=== PATIENT | female | born 1960 | race Caucasian/White ===

== ENCOUNTER 2018-03-21 10:21 | Emergency (ER) | payer MEDICARE, BC ==
[2018-03-21 10:28] VITALS: BP 156/96; PULSE 83; RESP 18; TEMP 97.8
[2018-03-21] MEDS ORDERED: LIDOCAINE 1%-EPI 1:100,000 20 ML VIAL SQ STA (10:59)
[2018-03-21] MEDS ORDERED: BUPIVACAINE (PF) 0.75% 10 ML VIAL SQ STA (11:01)
--- NOTE | 2018-03-21 11:02 | ED ---
General Adult HPI - General Chief complaint: Dental/Oral Stated complaint: Dental pain Source: patient Mode of arrival: ambulatory Limitations: no limitations - History of Present Illness Initial comments: Dictation was produced using Snoobe dictation software. please excuse any grammatical, word or spelling errors. Chief Complaint: 57yo female with past medical history of poor dentition presents with dental pain. History of Present Illness: 57-year-old female presents with dental pain. Patient states that last night she cracked her back tooth. Patient has history of poor dentition. She has not seen dentist in several years. She complains of left-sided maxillary tooth pain. Patient states the pain began immediately after she felt her tooth crack. The ROS documented in this emergency department record has been reviewed and confirmed by me. Those systems with pertinent positive or negative responses have been documented in the HPI. All other systems are other negative and/or noncontributory. - Related Data Home Medications Medication Instructions Recorded Confirmed Aspirin EC [Ecotrin] 325 mg PO DAILY PRN 03/21/18 03/21/18 Atorvastatin [Lipitor] 40 mg PO HS 03/21/18 03/21/18 Lisinopril [Zestril] 2.5 mg PO DAILY 03/21/18 03/21/18 Nebivolol HCl [Bystolic] 10 mg PO DAILY 03/21/18 03/21/18 metFORMIN HCL ER [Glucophage Xr] 500 mg PO TID 03/21/18 03/21/18 Previous Rx's Medication Instructions Recorded Amoxic-Pot Clav 875-125Mg 1 tab PO BID 3 Days #6 tab 03/21/18 [Augmentin 875-125] HYDROcodone/APAP 5-325MG [[place] 1 tab PO Q6HR PRN 3 Days #12 tab 03/21/18 5-325] Allergies Allergy/AdvReac Type Severity Reaction Status Date / Time No Known Allergies Allergy Verified 03/21/18 10:42 Review of Systems ROS Statement: Those systems with pertinent positive or pertinent negative responses have been documented in the HPI. ROS Other: All systems not noted in ROS Statement are negative. Past Medical History Past Medical History: Hyperlipidemia, Hypertension History of Any Multi-Drug Resistant Organisms: None Reported Past Surgical History: Tubal Ligation Additional Past Surgical History / Comment(s): carpal tunnel, rotator cuff Past Psychological History: No Psychological Hx Reported Smoking Status: Current every day smoker Past Alcohol Use History: None Reported Past Drug Use History: None Reported General Exam - General Exam Comments Initial Comments: PHYSICAL EXAM: General Impression: Alert and oriented x3, not in acute distress HEENT: Normocephalic atraumatic, extra-ocular movements intact, pupils equal and reactive to light bilaterally, mucous membranes moist, poor dentition. Defect and left maxillary molar, no palpable gingival fluctuance Cardiovascular: Heart regular rate and rhythm, S1&S2 audible, no murmurs, rubs or gallops Chest: Lungs clear to auscultation bilaterally, no rhonchi, no wheeze, no rales Abdomen: Bowel sounds present, abdomen soft, non-tender, non-distended, no organomegaly Musculoskeletal: Pulses present and equal in all extremities, no peripheral edema Motor: Power 5/5 bilaterally, no focal deficits noted Neurological: CN II-XII grossly intact, no focal motor or sensory deficits noted Skin: Intact with no visualized rashes Psych: Normal affect and mood Limitations: no limitations Course Vital Signs 03/21/18 10:25 Temperature 97.8 F Pulse Rate 83 Respiratory 18 Rate Blood Pressure 156/96 O2 Sat by Pulse 100 Oximetry Procedures - Nerve Block Consent Obtained: verbal consent Time Out Performed: Yes Local Anesthetic Used: LIDOCAINE 1% with EPI Amount of anesthesia used: 4 Side: left Nerve Blocks: other Intraoral Nerve Block: supraperiosteal Procedure Successful: Yes Complications: none Patient Tolerated Procedure: well Medical Decision Making - Medical Decision Making ED course: 57-year-old female presents with dental pain of the left maxillary molar tooth. Patient has poor dental hygiene on physical examination. No signs of infection at this time. Vital signs upon arrival are within acceptable limits. Dental nerve block was performed at left maxillary first molar tooth. Patient was injected with bupivacaine and lidocaine. medications. Patient reevaluated with improvement of symptoms. Patient be discharged with antibiotics, oral analgesics. She is told to see dentist as soon as possible for outpatient management of dental pain. Disposition Clinical Impression: Pain, dental Disposition: HOME SELF-CARE Instructions: Toothache (ED) Additional Instructions: follow up with dentist debo Prescriptions: Amoxic-Pot Clav 875-125Mg [Augmentin 875-125] 1 tab PO BID 3 Days #6 tab HYDROcodone/APAP 5-325MG [[place] 5-325] 1 tab PO Q6HR PRN 3 Days #12 tab PRN Reason: Severe Pain Is patient prescribed a controlled substance at d/c from ED?: Yes If prescribed controlled substance>3 days was MAPS reviewed?: Prescribed <3 Days Referrals: Luigi Gonzales DO [Primary Care Provider] - 1-2 days Time of Disposition: 11:40
[2018-03-21] MEDS ORDERED: HYDROcodone/APAP 5-325MG 1 EACH TAB PO STA (11:34)
== END 2018-03-21 11:46 | disposition home or self-care (01) ==
LOC: EC 10:21
DX: K08.89 Other specified disorders of teeth and supporting structures (principal); E78.5 Hyperlipidemia, unspecified; I10 Essential (primary) hypertension; F17.200 Nicotine dependence, unspecified, uncomplicated; Z79.82 Long term (current) use of aspirin; Z79.84 Long term (current) use of oral hypoglycemic drugs; Z79.899 Other long term (current) drug therapy
CPT/HCPCS: 64400; 99282

== ENCOUNTER → 2019-08-30 | Outpatient (CLI) | payer MEDICARE, BC ==
--- NOTE | 2019-08-30 16:01 | XR ---
EXAMINATION TYPE: XR abdomen 2V DATE OF EXAM: 08/30/2019 COMPARISON: NONE HISTORY: Pain TECHNIQUE: Two view abdominal series FINDINGS: The osseous structures are intact. The bowel gas pattern is nonspecific. Lung bases are clear. Calc ifications in the pelvis are likely vascular. Hypertrophic and degenerative change of the spine. IMPRESSION: 1. Nonspecific abdomen.
== END | disposition home or self-care (01) ==
LOC: RADXRMAIN 15:34
PROVIDERS: ATTEND Family Medicine
DX: R11.10 Vomiting, unspecified (principal)
CPT/HCPCS: 74019

== ENCOUNTER 2020-08-08 16:22 | Emergency (ER) | payer MEDICARE, BC ==
[2020-08-08 16:55] VITALS: BP 112/73; PULSE 83; TEMP 97.9
[2020-08-08] MEDS ORDERED: LIDOCAINE 1% INJ 10MG/ML (20 ML MDV) SQ ONE (17:39)
--- NOTE | 2020-08-08 17:41 | ED ---
Wound/Laceration HPI - General Chief Complaint: Wound/Laceration Stated Complaint: Finger laceration, dog bite Time Seen by Provider: 08/08/20 17:04 Source: patient, RN notes reviewed Mode of arrival: ambulatory Limitations: no limitations - History of Present Illness Initial Comments: Patient is a 60-year-old female that presents to emergency department with right index finger laceration on the medial side. She notes that her puppy snagged with a tooth and cut her finger. She notes that the puppy is up-to-date on its vaccinations. She denied any pain or discomfort at this time. She still has full range of motion feeling sensation in that finger. She denied any weakness numbness tingling decreased range of motion strength chest pendulous breath headache nausea vomiting diarrhea constipation fever fatigue chills. - Related Data Home Medications Medication Instructions Recorded Confirmed Aspirin EC [Ecotrin] 325 mg PO DAILY PRN 03/21/18 03/21/18 Atorvastatin [Lipitor] 40 mg PO HS 03/21/18 03/21/18 Nebivolol HCl [Bystolic] 10 mg PO DAILY 03/21/18 03/21/18 lisinopriL [Zestril] 2.5 mg PO DAILY 03/21/18 03/21/18 metFORMIN HCL ER [Glucophage Xr] 500 mg PO TID 03/21/18 03/21/18 Previous Rx's Medication Instructions Recorded Amoxic-Pot Clav 875-125Mg 1 tab PO BID 3 Days #6 tab 03/21/18 [Augmentin 875-125] HYDROcodone/APAP 5-325MG [[place] 1 tab PO Q6HR PRN 3 Days #12 tab 03/21/18 5-325] Amoxicillin/Potassium Clav 1 tab PO Q12HR #20 tab 08/08/20 [Augmentin 875-125 Tablet] Allergies Allergy/AdvReac Type Severity Reaction Status Date / Time No Known Allergies Allergy Verified 08/08/20 16:52 Review of Systems ROS Statement: Those systems with pertinent positive or pertinent negative responses have been documented in the HPI. ROS Other: All systems not noted in ROS Statement are negative. Past Medical History Past Medical History: Hyperlipidemia, Hypertension History of Any Multi-Drug Resistant Organisms: None Reported Past Surgical History: Tubal Ligation Additional Past Surgical History / Comment(s): carpal tunnel, rotator cuff Past Psychological History: No Psychological Hx Reported Smoking Status: Current every day smoker Past Alcohol Use History: None Reported Past Drug Use History: None Reported General Exam Limitations: no limitations General appearance: alert, in no apparent distress Head exam: Present: atraumatic, normocephalic, normal inspection Eye exam: Present: normal appearance, PERRL, EOMI. Absent: scleral icterus, conjunctival injection, periorbital swelling Neck exam: Present: normal inspection Respiratory exam: Present: normal lung sounds bilaterally. Absent: respiratory distress, wheezes, rales, rhonchi, stridor Cardiovascular Exam: Present: regular rate, normal rhythm, normal heart sounds. Absent: systolic murmur, diastolic murmur, rubs, gallop, clicks GI/Abdominal exam: Present: soft, normal bowel sounds. Absent: distended, tenderness, guarding, rebound, rigid Extremities exam: Present: normal inspection, full ROM, normal capillary refill. Absent: tenderness, pedal edema, joint swelling, calf tenderness Right Hand Wrist exam: Present: laceration (Medial aspect of the index finger running distal to proximal approximately 5-6 sonometer's) Neurological exam: Present: alert, oriented X3, CN II-XII intact Psychiatric exam: Present: normal affect, normal mood Skin exam: Present: warm, dry, intact, normal color. Absent: rash Course Vital Signs 08/08/20 16:52 Temperature 97.9 F Pulse Rate 83 Respiratory 16 Rate Blood Pressure 112/73 O2 Sat by Pulse 98 Oximetry Procedures - Laceration Laceration #1 Consent Obtained: verbal consent Indication: laceration Site: hand (Right index finger) Size (cm): 5 Description: linear Depth: simple, single layer Anesthetic Used: lidocaine 1% Anesthesia Technique: local infiltration Amount (mls): 2 Pre-repair: irrigated extensively Type of Sutures: nylon Size of Sutures: 5-0 Number of Sutures: 3 Patient Tolerated Procedure: well, no complications Medical Decision Making - Medical Decision Making 60-year-old female with finger laceration from puppy tooth snagged. Lidocaine ordered. Patient tolerated suturing well. Case discussed with Dr. Wallace, patient can discharge home with follow-up primary care. Disposition Clinical Impression: Laceration, Dog bite Disposition: HOME SELF-CARE Condition: Stable Instructions (If sedation given, give patient instructions): Laceration (ED), Care For Your Stitches (ED) Additional Instructions: Please return to the Emergency Department if symptoms worsen or any other concerns. Take Avelox as prescribed until complete. Please return to emergency department to get stitches removed in 5-7 days. Can take Tylenol Motrin as needed for pain control. Follow-up with primary care in 3-5 days Prescriptions: Amoxicillin/Potassium Clav [Augmentin 875-125 Tablet] 1 tab PO Q12HR #20 tab Is patient prescribed a controlled substance at d/c from ED?: No Referrals: Luigi Gonzales DO [Primary Care Provider] - 1-2 days Time of Disposition: 18:21
[2020-08-08 18:33] VITALS: RESP 18
== END 2020-08-08 18:34 | disposition home or self-care (01) ==
LOC: EC 16:22
DX: S61.250A Open bite of right index finger without damage to nail, initial encounter (principal); W54.0XXA Bitten by dog, initial encounter; I10 Essential (primary) hypertension; F17.200 Nicotine dependence, unspecified, uncomplicated; E78.5 Hyperlipidemia, unspecified; Z98.51 Tubal ligation status
CPT/HCPCS: 99282; 12002; 96372; J2001

== ENCOUNTER 2021-12-18 18:57 | Inpatient (IN) | payer MEDICARE, BC ==
[2021-12-18] MEDS ORDERED: METOCLOPRAMIDE 5 MG/ML 2 ML VIAL IVP STA (22:22)
[2021-12-18] MEDS ORDERED: SODIUM CHLORIDE 0.9% 2,000 ML IV STA (22:22)
[2021-12-18] MEDS ORDERED: MORPHINE SULFATE 4 MG/ML SYRINGE IVP STA (22:49)
[2021-12-18 22:55] LABS: Appearance,Urine Cloudy (Clear); Bilirubin,Urine Negative (Negative); Blood,Urine Large (Negative); Color,Urine Yellow; Glucose,Urine (UA) Negative (Negative); Hyaline Casts,Urine 19 /lpf (0-2); Ketones,Urine 2+ (Negative); Leukocyte Esterase,Urine Small (Negative); Mucus,Urine Occasional /hpf; Nitrite,Urine Negative (Negative); Protein,Urine 1+ (Negative); RBC,Urine >182 /hpf (0-5); Specific Gravity,Urine 1.026 (1.001-1.035); Squamous Epithelial Cell,Urine 7 /hpf (0-4); WBC,Urine 20 /hpf (0-5)
[2021-12-18 23:20] LABS: Basophils # (A) 0.1 k/uL (0-0.2); Basophils % (A) 0 %; Eosinophils % (A) 0 %; HCT 43.3 % (34.0-46.0); HGB 14.2 gm/dL (11.4-16.0); Lymphocytes # (A) 1.9 k/uL (1.0-4.8); Lymphocytes % (A) 10 %; MCH 28.8 pg (25.0-35.0); MCHC 32.8 g/dL (31.0-37.0); MCV 87.8 fL (80.0-100.0); Mean Platelet Volume 10.2; Monocytes # (A) 1.1 k/uL (0-1.0); Monocytes % (A) 6 %; Neutrophils % (A) 83 %; Platelet Count 181 k/uL (150-450); RBC 4.93 m/uL (3.80-5.40); RDW 14.1 % (11.5-15.5); WBC 19.3 k/uL (3.8-10.6)
--- NOTE | 2021-12-18 23:22 | CT ---
EXAMINATION TYPE: CT abdomen pelvis w con DATE OF EXAM: 12/18/2021 COMPARISON: 10/03/2012 HISTORY: abd pain CT DLP: 1732 mGycm Automated exposure control for dose reduction was used. CONTRAST: Performed with IV Contrast, patient injected with 100 mL of Isovue 300. The lung bases are clear of infiltrate. No pleural effusion. Heart size is normal. No pericardial eff usion. Liver spleen stomach pancreas gallbladder appear intact. The bile ducts are not dilated. There is no adrenal mass. Kidneys of normal size. There is left-sided hydronephrosis and hydroureter. There is an obstructing 3 mm calculus at the left ureterovesical junction. Right kidney shows no sig n of obstruction. There is some fat stranding and apparent extraluminal fluid collection and fluid level posterior to t he mid sigmoid colon. This measures 4 cm in diameter. No inguinal hernia. No free fluid in the pelvis . Appendix is medial and appears normal. There is no ascites or free air. No sign of a bowel obstructio n. The lumbar vertebrae are normal alignment. No compression fracture. Bony pelvis is intact. Hip sierra nts are intact. IMPRESSION: Obstructing small calculus at the left ureterovesical junction with left-sided hydronephrosis and hyd roureter. No other calculus seen. There is some mild diverticulitis with posterior complex fluid collection and consistent with peridiv erticular abscess. There is relatively small amount of inflammatory reaction around the fluid and con sistent with a chronic abscess.
[2021-12-18 23:35] LABS: Albumin 4.4 g/dL (3.5-5.0); Calcium 9.6 mg/dL (8.4-10.2); Potassium 4.2 mmol/L (3.5-5.1); Total Bilirubin 0.7 mg/dL (0.2-1.3); Total Protein 7.6 g/dL (6.3-8.2)
[2021-12-19] MEDS ORDERED: ONDANSETRON 4 MG/2 ML VIAL IVP PRN (00:51)
[2021-12-19] MEDS ORDERED: NALOXONE 0.4 MG/ML 1 ML VIAL IV PRN (00:51)
--- NOTE | 2021-12-19 00:51 | ED ---
General Adult HPI - General Chief complaint: Nausea/Vomiting/Diarrhea Stated complaint: Abd pain Time Seen by Provider: 12/18/21 22:08 Source: patient Mode of arrival: ambulatory Limitations: no limitations - History of Present Illness Initial comments: Patient is a 61-year-old female presenting with chief complaint of nausea and vomiting for the last 3 weeks. Patient also admits to abdominal pain across the lower portion of the abdomen. Patient has history of kidney stones. Patient states she has not been able to tolerate oral intake at home. Patient states she is having infrequent bowel movements, no known diarrhea or hematochezia. No dysuria or hematuria. No radiation of pain to the back. No fever, chills, chest pain, shortness of breath, weakness, palpitations. - Related Data Home Medications Medication Instructions Recorded Confirmed Aspirin EC [Ecotrin] 325 mg PO DAILY PRN 03/21/18 03/21/18 Atorvastatin [Lipitor] 40 mg PO HS 03/21/18 03/21/18 Nebivolol HCl [Bystolic] 10 mg PO DAILY 03/21/18 03/21/18 lisinopriL [Zestril] 2.5 mg PO DAILY 03/21/18 03/21/18 metFORMIN HCL ER [Glucophage Xr] 500 mg PO TID 03/21/18 03/21/18 Previous Rx's Medication Instructions Recorded Amoxic-Pot Clav 875-125Mg 1 tab PO BID 3 Days #6 tab 03/21/18 [Augmentin 875-125] HYDROcodone/APAP 5-325MG [[place] 1 tab PO Q6HR PRN 3 Days #12 tab 03/21/18 5-325] Amoxicillin/Potassium Clav 1 tab PO Q12HR #20 tab 08/08/20 [Augmentin 875-125 Tablet] Allergies Allergy/AdvReac Type Severity Reaction Status Date / Time No Known Allergies Allergy Verified 12/18/21 19:29 Review of Systems ROS Statement: Those systems with pertinent positive or pertinent negative responses have been documented in the HPI. ROS Other: All systems not noted in ROS Statement are negative. Past Medical History Past Medical History: Hyperlipidemia, Hypertension History of Any Multi-Drug Resistant Organisms: None Reported Past Surgical History: Tubal Ligation Additional Past Surgical History / Comment(s): carpal tunnel, rotator cuff Past Psychological History: No Psychological Hx Reported Smoking Status: Current every day smoker Past Alcohol Use History: None Reported Past Drug Use History: None Reported General Exam Limitations: no limitations General appearance: alert, in no apparent distress Head exam: Present: atraumatic, normocephalic, normal inspection Eye exam: Present: normal appearance, PERRL, EOMI. Absent: scleral icterus, conjunctival injection, periorbital swelling Neck exam: Present: normal inspection Respiratory exam: Present: normal lung sounds bilaterally. Absent: respiratory distress, wheezes, rales, rhonchi, stridor Cardiovascular Exam: Present: regular rate, normal rhythm, normal heart sounds. Absent: systolic murmur, diastolic murmur, rubs, gallop, clicks GI/Abdominal exam: Present: soft, tenderness (diffuse). Absent: distended, guarding, rebound, rigid Neurological exam: Present: alert, oriented X3, CN II-XII intact Psychiatric exam: Present: normal affect, normal mood Skin exam: Present: warm, dry, intact, normal color. Absent: rash Course Vital Signs 12/18/21 12/19/21 19:27 02:40 Temperature 98.5 F Pulse Rate 99 Pulse Rate [ 91 Pulse Oximetery ] Respiratory 18 16 Rate Blood Pressure 159/93 Blood Pressure 91/65 [Right Arm] O2 Sat by Pulse 99 93 L Oximetry Medical Decision Making - Medical Decision Making Patient is a 61-year-old female presenting with chief complaint of nausea, vomi ting, abdominal pain for the last 3 weeks. On examination there is diffuse abdominal tenderness. CBC shows WBC 19.3. Sodium 133, patient is receiving IV fluids glucose 125. Urine is positive for large blood and greater than [address] shows obstructing small calculus at the left ureterovesicular junction with left-sided hydronephrosis and hydroureter as well as some mild diverticulitis with posterior complex fluid collection collection consistent with peridiverticular abscess. Patient is started on Zosyn, has been given pain medication and nausea medication. I reassessment she is resting comfortably. I informed her of these findings and the need for admission. She was agreeable. E physician accepted admission. Surgical and urology consults placed. I discussed this case with my attending Dr. Frias. - Lab Data Result diagrams: 12/18/21 22:39 12/18/21 22:39 Lab Results 12/18/21 12/18/21 12/18/21 Range/Units 22:27 22:39 22:39 WBC 19.3 H (3.8-10.6) k/uL RBC 4.93 (3.80-5.40) m/uL Hgb 14.2 (11.4-16.0) gm/dL Hct 43.3 (34.0-46.0) % MCV 87.8 (80.0-100.0) fL MCH 28.8 (25.0-35.0) pg MCHC 32.8 (31.0-37.0) g/dL RDW 14.1 (11.5-15.5) % Plt Count 181 (150-450) k/uL MPV 10.2 Neutrophils % 83 % Lymphocytes % 10 % Monocytes % 6 % Eosinophils % 0 % Basophils % 0 % Neutrophils # 16.0 H (1.3-7.7) k/uL Lymphocytes # 1.9 (1.0-4.8) k/uL Monocytes # 1.1 H (0-1.0) k/uL Eosinophils # 0.0 (0-0.7) k/uL Basophils # 0.1 (0-0.2) k/uL Sodium 133 L (137-145) mmol/L Potassium 4.2 (3.5-5.1) mmol/L Chloride 98 (98-107) mmol/L Carbon Dioxide 18 L (22-30) mmol/L Anion Gap 17 mmol/L BUN 16 (7-17) mg/dL Creatinine 0.85 (0.52-1.04) mg/dL Est GFR (CKD-EPI)AfAm 87 (>60 ml/min/1.73 sqM) Est GFR (CKD-EPI)NonAf 76 (>60 ml/min/1.73 sqM) Glucose 125 H (74-99) mg/dL Calcium 9.6 (8.4-10.2) mg/dL Total Bilirubin 0.7 (0.2-1.3) mg/dL AST 18 (14-36) U/L ALT 12 (4-34) U/L Alkaline Phosphatase 87 (38-126) U/L Total Protein 7.6 (6.3-8.2) g/dL Albumin 4.4 (3.5-5.0) g/dL Amylase 41 (30-110) U/L Lipase 108 (23-300) U/L Urine Color Yellow Urine Appearance Cloudy H (Clear) Urine pH 6.0 (5.0-8.0) Ur Specific [place] 1.026 (1.001-1.035) Urine Protein 1+ H (Negative) Urine Glucose (UA) Negative (Negative) Urine Ketones 2+ H (Negative) Urine Blood Large H (Negative) Urine Nitrite Negative (Negative) Urine Bilirubin Negative (Negative) Urine Urobilinogen 3.0 (<2.0) mg/dL Ur Leukocyte Esterase Small H (Negative) Urine RBC >182 H (0-5) /hpf Urine WBC 20 H (0-5) /hpf Ur Squamous Epith Cells 7 H (0-4) /hpf Hyaline Casts 19 H (0-2) /lpf Urine Mucus Occasional H (None) /hpf Disposition Clinical Impression: Diverticulitis of intestine with abscess, Kidney stone Disposition: ADMITTED IP TO THIS [facility] Condition: Serious Time of Disposition: 00:51
[2021-12-19] MEDS ORDERED: PIPERACILLIN-TAZOBACTAM 3.375 GM in SODIUM CHLORIDE 0.9% 100 ML IVPB ONE (01:00)
[2021-12-19] MEDS: MORPHINE SULFATE 4 MG/ML SYRINGE IV PRN ×3 (02:46→17:09)
[2021-12-19] MEDS: SODIUM CHLORIDE 0.9% 1,000 ML IV SCH ×4 (02:48→20:25)
--- NOTE | 2021-12-19 10:23 | P.GSCN ---
History of Present Illness Consult date: 12/19/21 Reason for Consult: Left ureteral calculus Requesting physician: Edin Sanchez History of present illness: The patient is a 61-year-old white female who passed a kidney stone approximately 20 years ago. For the past 3 weeks, she has experienced left lower quadrant abdominal pain, associated with nausea and vomiting. The nausea and vomiting have increased for the past 5 days. She denies dysuria but does report "pressure". CT scan shows mild left hydroureteronephrosis due to a 3 mm left distal ureteral calculus. No other calculi are seen. The CT scan also shows mild diverticulitis with a possible peridiverticular abscess. Review of Systems - Constitutional Denies chills, Denies fever - Gastrointestinal Reports nausea, Reports vomiting - Genitourinary Genitourinary: Reports kidney stones Past Medical History Past Medical History: Hyperlipidemia, Hypertension History of Any Multi-Drug Resistant Organisms: None Reported Past Surgical History: Tubal Ligation Additional Past Surgical History / Comment(s): carpal tunnel, rotator cuff Past Anesthesia/Blood Transfusion Reactions: No Reported Reaction Past Psychological History: No Psychological Hx Reported Smoking Status: Current every day smoker Past Alcohol Use History: None Reported Past Drug Use History: None Reported Medications and Allergies Home Medications Medication Instructions Recorded Confirmed Type Amoxic-Pot Clav 875-125Mg 1 tab PO BID 3 Days #6 tab 03/21/18 Rx [Augmentin 875-125] Aspirin EC [Ecotrin] 325 mg PO DAILY PRN 03/21/18 03/21/18 History Atorvastatin [Lipitor] 40 mg PO HS 03/21/18 03/21/18 History HYDROcodone/APAP 5-325MG [[place] 1 tab PO Q6HR PRN 3 Days #12 tab 03/21/18 Rx 5-325] Nebivolol HCl [Bystolic] 10 mg PO DAILY 03/21/18 03/21/18 History lisinopriL [Zestril] 2.5 mg PO DAILY 03/21/18 03/21/18 History metFORMIN HCL ER [Glucophage Xr] 500 mg PO TID 03/21/18 03/21/18 History Amoxicillin/Potassium Clav 1 tab PO Q12HR #20 tab 08/08/20 Rx [Augmentin 875-125 Tablet] Allergies Allergy/AdvReac Type Severity Reaction Status Date / Time No Known Allergies Allergy Verified 12/18/21 19:29 Surgical - Exam Vital Signs Temp Pulse Resp BP Pulse Ox 98.5 F 99 18 159/93 99 12/18/21 19:27 12/18/21 19:27 12/18/21 19:27 12/18/21 19:27 12/18/21 19:27 - General well developed, well nourished, moderate distress - Neck no masses, trachea midline - Respiratory normal respiratory effort - Abdomen Soft, non-distended, no palpable mass. Moderate left lower quadrant tenderness to palpation, no guarding or rebound. - Psychiatric oriented to time, oriented to person, oriented to place, speech is normal, memory intact Results - Labs 12/18/21 22:39 12/18/21 22:39 Abnormal Lab Results - Last 24 Hours (Table) 12/18/21 12/18/21 12/18/21 Range/Units 22:27 22:39 22:39 WBC 19.3 H (3.8-10.6) k/uL Neutrophils # 16.0 H (1.3-7.7) k/uL Monocytes # 1.1 H (0-1.0) k/uL Sodium 133 L (137-145) mmol/L Carbon Dioxide 18 L (22-30) mmol/L Glucose 125 H (74-99) mg/dL Urine Appearance Cloudy H (Clear) Urine Protein 1+ H (Negative) Urine Ketones 2+ H (Negative) Urine Blood Large H (Negative) Ur Leukocyte Esterase Small H (Negative) Urine RBC >182 H (0-5) /hpf Urine WBC 20 H (0-5) /hpf Ur Squamous Epith Cells 7 H (0-4) /hpf Hyaline Casts 19 H (0-2) /lpf Urine Mucus Occasional H (None) /hpf Diabetes panel 12/18/21 Range/Units 22:39 Sodium 133 L (137-145) mmol/L Potassium 4.2 (3.5-5.1) mmol/L Chloride 98 (98-107) mmol/L Carbon Dioxide 18 L (22-30) mmol/L BUN 16 (7-17) mg/dL Creatinine 0.85 (0.52-1.04) mg/dL Glucose 125 H (74-99) mg/dL Calcium 9.6 (8.4-10.2) mg/dL AST 18 (14-36) U/L ALT 12 (4-34) U/L Alkaline Phosphatase 87 (38-126) U/L Total Protein 7.6 (6.3-8.2) g/dL Albumin 4.4 (3.5-5.0) g/dL Calcium panel 12/18/21 Range/Units 22:39 Calcium 9.6 (8.4-10.2) mg/dL Albumin 4.4 (3.5-5.0) g/dL Pituitary panel 12/18/21 Range/Units 22:39 Sodium 133 L (137-145) mmol/L Potassium 4.2 (3.5-5.1) mmol/L Chloride 98 (98-107) mmol/L Carbon Dioxide 18 L (22-30) mmol/L BUN 16 (7-17) mg/dL Creatinine 0.85 (0.52-1.04) mg/dL Glucose 125 H (74-99) mg/dL Calcium 9.6 (8.4-10.2) mg/dL Adrenal panel 12/18/21 Range/Units 22:39 Sodium 133 L (137-145) mmol/L Potassium 4.2 (3.5-5.1) mmol/L Chloride 98 (98-107) mmol/L Carbon Dioxide 18 L (22-30) mmol/L BUN 16 (7-17) mg/dL Creatinine 0.85 (0.52-1.04) mg/dL Glucose 125 H (74-99) mg/dL Calcium 9.6 (8.4-10.2) mg/dL Total Bilirubin 0.7 (0.2-1.3) mg/dL AST 18 (14-36) U/L ALT 12 (4-34) U/L Alkaline Phosphatase 87 (38-126) U/L Total Protein 7.6 (6.3-8.2) g/dL Albumin 4.4 (3.5-5.0) g/dL - Imaging CT scan - abdomen: report reviewed, image reviewed Assessment and Plan (1) Calculus of ureter Current Visit: Yes Status: Acute Code(s): N20.1 - CALCULUS OF URETER SNOMED Code(s): 38381308 (2) Hydronephrosis with obstructing calculus Current Visit: Yes Status: Acute Code(s): N13.2 - HYDRONEPHROSIS WITH RENAL AND URETERAL CALCULOUS OBSTRUCTION SNOMED Code(s): 71278865 Plan: I have offered Mrs. Bustos the options of medical expulsion therapy versus ureteroscopic removal of the calculus. The calculus has a high likelihood of passing, but at this time she appears to have symptoms pertaining to both the ureteral calculus and diverticulitis. She has elected to undergo ureteroscopic removal of the calculus, which will be performed tomorrow. Specifically, I intend to perform cystoscopy, left ureteroscopy with Holmium laser lithotripsy and/or stone basketing, possible ureteral stent placement. The procedure has been reviewed in detail with her. She has been made aware of potential risks, which include anesthesia, bleeding, infection, inability to remove the calculus, and ureteral injury. She will be nothing by mouth after midnight, but from my standpoint she may eat today. Time with Patient: Greater than 30
[2021-12-19] MEDS ORDERED: ALPRAZolam 0.25 MG TAB PO PRN (11:51)
[2021-12-19] MEDS: HEPARIN SODIUM,PORCINE/PF 5,000 UNIT/0.5 ML SYRINGE SQ SCH ×2 (12:32→21:26)
[2021-12-19] MEDS: NEBIVOLOL 5 MG TAB PO SCH (12:34)
[2021-12-19] MEDS: PANTOPRAZOLE 40 MG/10 ML VIAL IVP SCH (12:35)
[2021-12-19] MEDS: lisinopriL 5 MG TAB PO SCH (12:35)
[2021-12-19] MEDS: NICOTINE 14MG/24HR PATCH TRANSDERM SCH ×2 (12:40)
[2021-12-19] MEDS: PIPERACILLIN-TAZOBACTAM 3.375 GM in SODIUM CHLORIDE 0.9% 100 ML IVPB SCH ×2 (12:48→21:27)
--- NOTE | 2021-12-19 13:17 | HP ---
HISTORY AND PHYSICAL CHIEF COMPLAINT: Abdominal pain and nausea and vomiting. HISTORY OF PRESENT ILLNESS: A 61-year-old woman with a past medical history of hypertension, hyperlipidemia, being followed by Dr. Lance. The patient has abdominal symptoms for the last 3 weeks. The patient had some discomfort on the left side. The patient came to [facility] and found to have left hydronephrosis, left ureteric stone as well as possibly diverticulitis and peridiverticular abscess, also patient . There is no history of fever, rigors, or chills at this time. PAST MEDICAL HISTORY: History of hypertension, hyperlipidemia, other history reviewed. MEDICATIONS: Metformin, doses and rest of medication also reviewed. ALLERGIES: None. FAMILY HISTORY: No history of heart diseases or strokes. SOCIAL HISTORY: History of smoking. REVIEW OF SYSTEMS: A 14-point review is negative except as mentioned earlier. PHYSICAL EXAMINATION: VITAL SIGNS: Pulse is 84, blood pressure 130/68, respirations 18. HEENT: Conjunctivae normal. NECK: No jugular venous distention. No carotid bruit. CARDIOVASCULAR: S1, S2 muffled. RESPIRATIONS: Bilateral scattered rhonchi and crackles. ABDOMEN: Soft, mild diffuse discomfort on palpation. No guarding, no rigidity. No mass palpable. Mild diffuse distention noted. No edema, no swelling. No ascites. Bowel sounds diminished. LEGS: No edema, no swelling, NERVOUS SYSTEM: No focal deficits. SKIN: No ulcer, rash, bleeding. JOINTS: No active deforming arthropathy. LABS: WBC 19, rest of the labs are noted. CT scan reviewed personally noted. ASSESSMENT: 1. Acute diverticulitis with peridiverticular abscess, possibly. 2. Left ureterovesical junction calculus with left-sided hydronephrosis and hydroureter. 3. Hypertension, hyperlipidemia, multiple medical issues. RECOMMENDATIONS: This 61-year-old woman with past _ problems, we will recommend to continue current medications, symptomatic treatment. We will initiate broad-spectrum IV antibiotics, urology, and surgical evaluations. Resume home medications, DVT prophylaxis. The prognosis guarded because of multiple complex medical conditions. Further recommendations to follow. MMODL / IJN: [id number] / MTDD
--- NOTE | 2021-12-19 15:20 | P.GSCN ---
History of Present Illness Consult date: 12/19/21 Reason for Consult: Suspected sigmoid diverticulitis with pericolonic abscess, acute abdominal pain, nausea and left obstructing ureterovesical kidney stone. History of present illness: Patient is a 61-year-old lady who presents to [facility] emergency department on 12/18/2021 with chief complaint of 3 days of progressive left lower quadrant abdominal pain with nausea. She tells me that her pain reached an apex and then seemed to improve a bit but remains persistent and 6 out of 10 in intensity. She denies associated fever or chills. The symptoms were accompanied with profound feelings of nausea and episodic diarrhea. She does not describe evidence of GI bleeding. This is the first time she has had these sorts of problems aside from an issue with a kidney stone some 20 years ago. She has not undergone abdominal surgeries, has never undergone colonoscopy. As no known personal history of inflammatory bowel disease. She's not maintained on any manner of oral anticoagulants or antiplatelet medications. She does have a history of type 2 diabetes and is maintained on metformin. Laboratory studies reveal of risk leukocytosis at 19.3 thousand, hemoglobin is normal range of 14.2, no evidence of microcytosis, hyperchromasia, or elevation of RDW on differential. Platelet count is normal range at 181. Metabolic panel shows a slightly low serum sodium of 133, potassium 4.2, CO2 is a bit low at 18, creatinine 0.85 and glucose 125. Venous lactate was normal range at 0.7. Amylase and lipase were both within normal range as were liver function studies. Urinalysis shows signs of hematuria without discrete evidence of urinary tract infection.A computed tomography scan of the abdomen and pelvis was obtained, im ages and official report were reviewed. There is an obstructive left ureterovesical stone with the moderate left sided hydronephrosis. There is evidence of degree of sigmoid diverticulitis and a 4 cm or so pericolonic fluid collection suspicious of abscess. There is no free air or free fluid, no signs of bowel obstruction. Patient's been seen by urology with plans for cystoscopy. Review of Systems All systems: negative - Constitutional Reports as per HPI - EENT Ears, nose, mouth and throat: Reports as per HPI - Cardiovascular Reports as per HPI - Respiratory Reports as per HPI - Gastrointestinal Reports as per HPI, Reports abdominal pain, Reports diarrhea - Genitourinary Genitourinary: Reports as per HPI Menstruation: Reports as per HPI - Musculoskeletal Reports as per HPI - Integumentary Reports as per HPI - Neurological Reports as per HPI - Psychiatric Reports as per HPI - Endocrine Reports as per HPI - Hematologic/Lymphatic Reports as per HPI - Allergic/Immunologic Reports as per HPI Past Medical History Past Medical History: Diabetes Mellitus, Hyperlipidemia, Hypertension History of Any Multi-Drug Resistant Organisms: None Reported Past Surgical History: Tubal Ligation Additional Past Surgical History / Comment(s): carpal tunnel, rotator cuff Past Anesthesia/Blood Transfusion Reactions: No Reported Reaction Past Psychological History: No Psychological Hx Reported Smoking Status: Current every day smoker Past Alcohol Use History: None Reported Past Drug Use History: None Reported Medications and Allergies Home Medications Medication Instructions Recorded Confirmed Type Atorvastatin [Lipitor] 40 mg PO HS 03/21/18 12/19/21 History Nebivolol HCl [Bystolic] 10 mg PO DAILY 03/21/18 12/19/21 History Glimepiride [Amaryl] 2 mg PO BID 12/19/21 12/19/21 History lisinopriL [Zestril] 5 mg PO DAILY 12/19/21 12/19/21 History metFORMIN HCL [Glucophage] 1,000 mg PO BID 12/19/21 12/19/21 History Allergies Allergy/AdvReac Type Severity Reaction Status Date / Time No Known Allergies Allergy Verified 12/19/21 11:27 Surgical - Exam Osteopathic Statement: *. No significant issues noted on an osteopathic structural exam other than those noted in the History and Physical/Consult. Vital Signs Temp Pulse Resp BP Pulse Ox 98.5 F 99 18 159/93 99 12/18/21 19:27 12/18/21 19:27 12/18/21 19:27 12/18/21 19:27 12/18/21 19:27 - General well developed, well nourished, no distress - Eyes PERRL, normal ocular movement - ENT normal pinna, normal nares, normal mucosa, no hearing loss - Neck trachea midline - Respiratory normal expansion, clear to auscultation - Cardiovascular Rhythm: regular - Abdomen There is mild focal left lower quadrant tenderness, no guarding rebound or distention. No clinical signs of peritonitis. No clinical signs of jaundice. Abdomen: soft - Neurologic normal coordination, normal sensation - Psychiatric oriented to time, oriented to person, oriented to place, speech is normal, memory intact Results - Labs 12/18/21 22:39 12/18/21 22:39 Abnormal Lab Results - Last 24 Hours (Table) 12/18/21 12/18/21 12/18/21 Range/Units 22:27 22:39 22:39 WBC 19.3 H (3.8-10.6) k/uL Neutrophils # 16.0 H (1.3-7.7) k/uL Monocytes # 1.1 H (0-1.0) k/uL Sodium 133 L (137-145) mmol/L Carbon Dioxide 18 L (22-30) mmol/L Glucose 125 H (74-99) mg/dL Urine Appearance Cloudy H (Clear) Urine Protein 1+ H (Negative) Urine Ketones 2+ H (Negative) Urine Blood Large H (Negative) Ur Leukocyte Esterase Small H (Negative) Urine RBC >182 H (0-5) /hpf Urine WBC 20 H (0-5) /hpf Ur Squamous Epith Cells 7 H (0-4) /hpf Hyaline Casts 19 H (0-2) /lpf Urine Mucus Occasional H (None) /hpf Microbiology - Last 24 Hours (Table) 12/18/21 22:27 Urine Culture - Preliminary Urine,Voided Diabetes panel 12/18/21 Range/Units 22:39 Sodium 133 L (137-145) mmol/L Potassium 4.2 (3.5-5.1) mmol/L Chloride 98 (98-107) mmol/L Carbon Dioxide 18 L (22-30) mmol/L BUN 16 (7-17) mg/dL Creatinine 0.85 (0.52-1.04) mg/dL Glucose 125 H (74-99) mg/dL Calcium 9.6 (8.4-10.2) mg/dL AST 18 (14-36) U/L ALT 12 (4-34) U/L Alkaline Phosphatase 87 (38-126) U/L Total Protein 7.6 (6.3-8.2) g/dL Albumin 4.4 (3.5-5.0) g/dL Calcium panel 12/18/21 Range/Units 22:39 Calcium 9.6 (8.4-10.2) mg/dL Albumin 4.4 (3.5-5.0) g/dL Pituitary panel 12/18/21 Range/Units 22:39 Sodium 133 L (137-145) mmol/L Potassium 4.2 (3.5-5.1) mmol/L Chloride 98 (98-107) mmol/L Carbon Dioxide 18 L (22-30) mmol/L BUN 16 (7-17) mg/dL Creatinine 0.85 (0.52-1.04) mg/dL Glucose 125 H (74-99) mg/dL Calcium 9.6 (8.4-10.2) mg/dL Adrenal panel 12/18/21 Range/Units 22:39 Sodium 133 L (137-145) mmol/L Potassium 4.2 (3.5-5.1) mmol/L Chloride 98 (98-107) mmol/L Carbon Dioxide 18 L (22-30) mmol/L BUN 16 (7-17) mg/dL Creatinine 0.85 (0.52-1.04) mg/dL Glucose 125 H (74-99) mg/dL Calcium 9.6 (8.4-10.2) mg/dL Total Bilirubin 0.7 (0.2-1.3) mg/dL AST 18 (14-36) U/L ALT 12 (4-34) U/L Alkaline Phosphatase 87 (38-126) U/L Total Protein 7.6 (6.3-8.2) g/dL Albumin 4.4 (3.5-5.0) g/dL - Imaging CT scan - abdomen: report reviewed, image reviewed CT scan - pelvis: report reviewed, image reviewed Assessment and Plan Assessment: 61-year-old lady with first episode of what would appear to be acute sigmoid diverticulitis with contained pericolonic abscess formation. No evidence of sepsis. No previous colonoscopy, rule out underlying neoplasia. No reported history of inflammatory bowel disease. Obstructing left ureterovesical kidney stone with hydronephrosis. Creatinine normal range. Associated persistent nausea. Diabetes mellitus type 2 on oral hypoglycemics. 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 She has no signs of sepsis, no clinical evidence of peritonitis. Has a hemodynamically stable appearance. She was advised that in this situation we would usually pursue image guided drainage as a first step. Review of the images shows that it might be a bit challenging but there should be bowel anteriorly and inferiorly for a percutaneous drain placement. If this can't be accessed percutaneously the next step would be laparoscopic drain placement or potential antibiotics and relat ively short interval follow-up with imaging to assess for improvement. Given the size I'd favor more definitive drain placement. Would plan for diagnostic colonoscopy 6-8 weeks after resolution of symptoms and removal of drain. If she has interval decompensation or signs of full-thickness perforation with feculent drainage then we would be looking at a sigmoid colectomy with temporizing ostomy. We'll request interventional radiology assessment. Patient's been seen by urology with plans for cystoscopy in the near future given her obstructing left kidney stone. She's been started on appropriate antibiotics with IV Zosyn. Okay for clear liquids in the meantime. Will follow. Time with Patient: Greater than 30
[2021-12-19] MEDS ORDERED: SODIUM CHLORIDE 0.9% 500 ML 500 ML IV ONE (20:21)
[2021-12-19] MEDS: metFORMIN 500 MG TAB PO SCH (21:26)
[2021-12-19] MEDS: ATORVASTATIN 40 MG TAB PO SCH (21:26)
[2021-12-19] MEDS: GLIMEPIRIDE 2 MG TAB PO SCH (21:26)
[2021-12-19] MEDS: KETOROLAC 15 MG/ML 1 ML VIAL IVP PRN (23:17)
[2021-12-20] MEDS: KETOROLAC 15 MG/ML 1 ML VIAL IVP PRN ×2 (05:07→21:19)
[2021-12-20] MEDS: PIPERACILLIN-TAZOBACTAM 3.375 GM in SODIUM CHLORIDE 0.9% 100 ML IVPB SCH ×3 (05:09→21:20)
[2021-12-20] MEDS: SODIUM CHLORIDE 0.9% 1,000 ML IV SCH ×2 (05:11→17:40)
[2021-12-20] MEDS ORDERED: SODIUM CHLORIDE 0.9% 1,000 ML IV ONE (08:02)
[2021-12-20] MEDS ORDERED: MIDAZOLAM 2 MG/2 ML VIAL ONE (08:02)
[2021-12-20] MEDS ORDERED: fentaNYL (PF) 50 MCG/ML 2 ML AMP ONE (08:02)
[2021-12-20] MEDS ORDERED: PHENYLEPHRINE-0.9% NACL SYG 1,000 MCG/10 ML SYRINGE ONE (08:02)
[2021-12-20] MEDS ORDERED: PROPOFOL 10 MG/ML 20 ML VIAL IV ONE (08:02)
[2021-12-20] MEDS ORDERED: IOPAMIDOL-370 50ML BTL IRRIGATION ONE (08:19)
--- NOTE | 2021-12-20 08:49 | P.OP ---
Date of Procedure: 12/20/21 Preoperative Diagnosis: Left ureteral calculus Postoperative Diagnosis: Same Procedure(s) Performed: Cystoscopy, left retrograde pyelogram, left ureteroscopy with Holmium laser lithotripsy Anesthesia: JULIA Surgeon: Harjit Angel Estimated Blood Loss (ml): 0 IV fluids (ml): 500 Pathology: other (Calculus fragments, sent for chemical analysis) Condition: stable Disposition: PACU Indications for Procedure: The patient is a 61-year-old white female who passed a kidney stone approximately 20 years ago. For the past 3 weeks, she has experienced left lower quadrant abdominal pain, associated with nausea and vomiting. The nausea and vomiting have increased for the past 5 days. She denies dysuria but does report "pressure". CT scan shows mild left hydroureteronephrosis due to a 3 mm left distal ureteral calculus. No other calculi are seen. The CT scan also shows mild diverticulitis with a possible peridiverticular abscess. She is being treated for diverticulitis, and desires ureteroscopic removal of her calculus. Operative Findings: 3-4 mm calculus impacted at left ureterovesical junction. The calculus was fragmented and removed completely. Description of Procedure: The patient was taken to the operating room and placed in the dorsolithotomy position, with legs supported in Neptali stirrups. The external genitalia was prepped and draped sterilely. The 30 lens was used to introduce the 21-Mongolian Flowers cystoscopic sheath through the urethra and into the bladder under direct vision. The bladder was examined in its entirety. Both ureteral orifices were normal anatomic location and configuration. No tumors or foreign bodies were seen. Using a 10-Mongolian cone-tipped catheter, a left retrograde pyelogram was performed. No abnormalities were seen. However, after this was performed the calculus could be seen at the UVJ. The cystoscope was removed, and the Flowers semirigid ureteroscope was advanced into the bladder. The left ureteral orifice was cannulated. The 200 micron Holmium laser probe was passed through the ureteroscope, and lithotripsy was performed. As the calculus fragmented, fragments passed distally into the bladder. Once all calculus fragments had passed into the bladder, ureteroscopy was performed. Edema was noted at the site of stone impaction. There were no residual calculus fragments, and no evidence of ureteral perforation. The ureteroscope was removed, and the cystoscope was passed into the bladder to remove calculus fragments which were sent for chemical analysis. The patient tolerated the procedure well and was taken to the recovery room in stable condition. ROLANDO SAMUEL Report: Procedure Acuity: Urgent Stone Size and Location: 3 mm, left UVJ Ureteral Dilation: No Ureteral Access Sheath Used: No Stone Sent for Analysis: Yes All Stones/Fragments Were Removed with a Basket: No Complications: No Preoperative Antibiotics Given: Yes Stent Placed: No Discharge Medications: N/A
[2021-12-20] MEDS: HEPARIN SODIUM,PORCINE/PF 5,000 UNIT/0.5 ML SYRINGE SQ SCH ×2 (10:10→21:20)
[2021-12-20 10:18] LABS: Basophils # (A) 0.04 X 10*3/uL (0.00-0.10); Basophils % (A) 0.4 %; Eosinophils # (A) 0.08 X 10*3/uL (0.04-0.35); Eosinophils % (A) 0.8 %; HCT 35.7 % (37.2-46.3); HGB 11.4 g/dL (12.0-15.0); Immature Grans, Automated 1.1 %; Lymphocytes # (A) 2.23 X 10*3/uL (0.90-5.00); Lymphocytes % (A) 22.7 %; MCH 27.9 pg (27.0-32.0); MCHC 31.9 g/dL (32.0-37.0); MCV 87.5 fL (80.0-97.0); Mean Platelet Volume 12.4 fL (9.5-12.2); Monocytes # (A) 0.84 X 10*3/uL (0.20-1.00); Monocytes % (A) 8.6 %; NRBC Per 100 WBC 0 /100 WBCS (0.0-0.0); Neutrophils # (A) 6.51 X 10*3/uL (1.80-7.70); Neutrophils % (A) 66.4 %; Platelet Count 155 X 10*3/uL (140-440); RBC 4.08 X 10*6/uL (4.10-5.20); RDW 14.5 % (11.5-14.5); WBC 9.81 X 10*3/uL (4.50-10.00)
[2021-12-20] MEDS: metFORMIN 500 MG TAB PO SCH (10:19)
[2021-12-20] MEDS: lisinopriL 5 MG TAB PO SCH (10:19)
[2021-12-20] MEDS: PANTOPRAZOLE 40 MG/10 ML VIAL IVP SCH (10:19)
[2021-12-20] MEDS: NEBIVOLOL 5 MG TAB PO SCH (10:19)
[2021-12-20] MEDS: GLIMEPIRIDE 2 MG TAB PO SCH (10:19)
[2021-12-20] MEDS: NICOTINE 14MG/24HR PATCH TRANSDERM SCH (10:28)
[2021-12-20 11:22] LABS: African American GFR (CKD) 81.1 (60.0-200.0); Albumin 3.4 g/dL (3.8-4.9); Albumin/Globulin Ratio 1.48 (1.60-3.17); BUN/Creat Ratio 12.33 Ratio (12.00-20.00); Blood Urea Nitrogen 11.1 mg/dL (9.0-27.0); Calcium 8.4 mg/dL (8.7-10.3); Globulin 2.3 g/dL (1.6-3.3); Potassium 4.1 mmol/L (3.5-5.5); Total Bilirubin 0.2 mg/dL (0.30-1.20); Total Protein 5.7 g/dL (6.2-8.2)
[2021-12-20 11:28] LABS: Glucose,Whole Blood 105 mg/dL (70-110)
--- NOTE | 2021-12-20 11:41 | FL ---
EXAMINATION TYPE: FL urography retrograde DATE OF EXAM: 12/20/2021 COMPARISON: NONE HISTORY: Ureteral calculus TECHNIQUE: Fluoroscopy. FINDINGS: Cysto for left side ureteral calculus. 13sec fluoro time IMPRESSION: As Above.
[2021-12-20] MEDS ORDERED: DEXTROSE 50% SYRINGE 50 ML IVP PRN ×2 (13:10)
--- NOTE | 2021-12-20 13:16 | P.PN ---
Subjective Progress Note Date: 12/20/21 Principal diagnosis: Suspected sigmoid diverticulitis with pericolonic abscess, acute abdominal pain, nausea, left obstructing ureterovesical call kidney stone. Patient seen and examined at bedside. Underwent cystoscopy with laser lithotripsy this morning. Since then her left lower quadrant abdominal pains have completely subsided. Nausea has similarly resolved. She is feeling quite hungry, is to been tolerating liquids. Voiding without issue, no bowel movement yet. Denies fever or chills. Laboratory studies today show resolution of leukocytosis with white blood cell count of 9.8 from 19.3 yesterday, hemoglobin is a bit lower in the setting of ongoing IV fluids at 11.4, platelet count is 155. Metabolic panel from this morning showed a low glucose at 42, creatinine normal at 0.9, liver functions within normal limits. Objective - Vital Signs Vital signs: Vital Signs Temp 96.9 F L 12/20/21 08:46 Pulse 59 L 12/20/21 11:35 Resp 18 12/20/21 11:35 BP 101/69 12/20/21 11:35 Pulse Ox 99 12/20/21 11:35 FiO2 Intake & Output 12/19/21 12/20/21 12/20/21 18:59 06:59 18:59 Intake Total 150 1900 900 Output Total 0 Balance 150 1900 900 Intake: IV 900 Intake, IV Titration 150 1900 Amount Piperacillin-Tazobactam 3 200 .375 gm In Sodium Chloride 0.9% 100 ml @ 25 mls/hr IVPB Q8H [place] Rx#: [id number] Sodium Chloride 0.9% 1, 1200 000 ml @ 100 mls/hr IV . Q10H [place] Rx#:[id number] Sodium Chloride 0.9% 1, 150 000 ml @ 75 mls/hr IV . [id number] [place] Rx#:[id number] Sodium Chloride 0.9% 500 500 ml 500 ml @ 999 mls/hr IV .Q31M [place] Rx#:[id number] Output: Estimated Blood Loss 0 Other: Voiding Method Toilet Toilet Toilet # Voids 4 - Constitutional General appearance: Present: average body habitus, no acute distress - EENT Eyes: Present: EOMI, PERRLA ENT: Present: NA/AT, normal oropharynx - Respiratory Respiratory: bilateral: CTA - Cardiovascular Rhythm: regular - Gastrointestinal Gastrointestinal Comment(s): Abdomen is soft, nontender to palpation, no guarding rebound or distention. Left lower quadrant tenderness has entirely resolved, no suprapubic tenderness. No evidence of peritonitis. - Neurologic Neurologic: Present: CNII-XII intact - Psychiatric Psychiatric: Present: A&O x's 3 - Labs CBC & Chem 7: 12/20/21 06:24 12/20/21 06:24 Labs: Abnormal Lab Results - Last 24 Hours (Table) 12/20/21 12/20/21 Range/Units 06:24 06:24 RBC 4.08 L (4.10-5.20) X 10*6/uL Hgb 11.4 L (12.0-15.0) g/dL Hct 35.7 L (37.2-46.3) % MCHC 31.9 L (32.0-37.0) g/dL MPV 12.4 H (9.5-12.2) fL Immature Gran # 0.11 H (0.00-0.04) X 10*3/uL Anion Gap 9.00 L (10.00-18.00) mmol/L Glucose 42 L* (70-110) mg/dL Calcium 8.4 L (8.7-10.3) mg/dL Total Bilirubin 0.20 L (0.30-1.20) mg/dL AST 11 L (13-35) U/L ALT 7 L (8-44) U/L Total Protein 5.7 L (6.2-8.2) g/dL Albumin 3.4 L (3.8-4.9) g/dL Albumin/Globulin Ratio 1.48 L (1.60-3.17) g/dL Microbiology - Last 24 Hours (Table) 12/18/21 22:27 Urine Culture - Final Urine,Voided 12/19/21 03:53 Blood Culture - Preliminary Blood No Growth after 24 hours Assessment and Plan Assessment: 61-year-old lady with first episode of what would appear to be acute sigmoid diverticulitis with contained pericolonic abscess formation. No evidence of sepsis. No previous colonoscopy, rule out underlying neoplasia. No reported history of inflammatory bowel disease. Leukocytosis resolved on antibiotics. Obstructing left ureterovesical kidney stone with hydronephrosis. Creatinine normal range. Pain and nausea resolved post laser lithotripsy and resolution of obstruction. Diabetes mellitus type 2 on oral hypoglycemics. 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 She has no signs of sepsis, no clinical evidence of peritonitis. Has a hemodynamically stable appearance. She was advised that in this situation we would usually pursue image guided drainage as a first step. Review of the images shows that it might be a bit challenging but there should be a window anteriorly and inferiorly for a percutaneous drain placement. If this can't be accessed percutaneously the next step would be laparoscopic drain placement or potential antibiotics and relatively short interval follow-up with imaging to assess for improvement. Given the size I'd favor more definitive drain placement. Would plan for diagnostic colonoscopy 6-8 weeks after resolution of symptoms and removal of drain. If she has interval decompensation or signs of full-thickness perforation with feculent drainage then we would be looking at a sigmoid colectomy with temporizing ostomy. We'll request interventional radiology assessment. She's been started on appropriate antibiotics with IV Zosyn. Okay for clear liquids in the meantime. Will follow. Time with Patient: Greater than 30
[2021-12-20 16:56] LABS: Glucose,Whole Blood 195 mg/dL (70-110)
[2021-12-20] MEDS: INSULIN ASPART (NovoLOG) 100 UNIT/ML VIAL SQ SCH ×2 (17:40→21:13)
[2021-12-20 20:49] LABS: Glucose,Whole Blood 114 mg/dL (70-110)
[2021-12-20] MEDS: ATORVASTATIN 40 MG TAB PO SCH (21:20)
[2021-12-20] MEDS: HYDROcodone/APAP 5-325MG 1 EACH TAB PO PRN (23:22)
[2021-12-21] MEDS: MORPHINE SULFATE 4 MG/ML SYRINGE IV PRN (02:21)
[2021-12-21] MEDS: PIPERACILLIN-TAZOBACTAM 3.375 GM in SODIUM CHLORIDE 0.9% 100 ML IVPB SCH ×3 (04:55→20:41)
[2021-12-21] MEDS: SODIUM CHLORIDE 0.9% 1,000 ML IV SCH ×2 (04:55→17:40)
[2021-12-21 07:01] LABS: Glucose,Whole Blood 69 mg/dL (70-110)
[2021-12-21] MEDS: INSULIN ASPART (NovoLOG) 100 UNIT/ML VIAL SQ SCH ×4 (07:05→20:32)
[2021-12-21] MEDS: NICOTINE 14MG/24HR PATCH TRANSDERM SCH (07:06)
--- NOTE | 2021-12-21 07:36 | PN ---
PROGRESS NOTE SUBJECTIVE: This 61-year-old woman was admitted with abdominal pain, had features of urolithiasis as well as possible diverticulitis with pre-diverticular abscess. No chest pain. No palpitation. Urology performed a cystoscopy, left retrograde pyelogram and laser lithotripsy. No chest pain. No palpitations. No fever. PHYSICAL EXAMINATION: VITAL SIGNS: Pulse is 59, blood pressure 101/60, respiration 18. HEENT: Conjunctivae normal. NECK: ntd ABDOMEN: Soft, minimal discomfort on left side. LABORATORY DATA: Reviewed. Hemoglobin 11.4. ASSESSMENT: 1. Acute diverticulitis with pre-diverticular abscess, possibly. 2. Left ureterovesical junction calculus, left-sided hydronephrosis and hydroureter, status post lithotripsy. 3. Hypertension. 4. Hyperlipidemia. 5. Multiple medical issues. RECOMMENDATIONS: To continue current medications. Continue the antibiotics. Stop the just watch and also the metformin and monitor the blood sugar levels. Otherwise, we will continue to monitor. Continue the antibiotics. Closely follow with Urology as well as Surgery. Prognosis guarded. Further recommendations to follow MMODL / IJN: [id number] / MTDIzaiah
[2021-12-21 07:39] LABS: Glucose,Whole Blood 86 mg/dL (70-110)
[2021-12-21] MEDS: lisinopriL 5 MG TAB PO SCH (08:01)
[2021-12-21] MEDS: NEBIVOLOL 5 MG TAB PO SCH (08:01)
[2021-12-21] MEDS: HEPARIN SODIUM,PORCINE/PF 5,000 UNIT/0.5 ML SYRINGE SQ SCH ×2 (08:01→20:40)
[2021-12-21] MEDS: PANTOPRAZOLE 40 MG/10 ML VIAL IVP SCH (08:01)
--- NOTE | 2021-12-21 08:21 | P.PN ---
Subjective Progress Note Date: 12/21/21 The patient underwent ureteroscopy with stone removal by yesterday. She feels much better. From urologic standpoint she could be discharged home and follow-up with in the office. Objective - Vital Signs Vital signs: Vital Signs Temp 97.5 F L 12/21/21 04:33 Pulse 56 L 12/21/21 08:00 Resp 18 12/21/21 04:33 BP 117/69 12/21/21 08:00 Pulse Ox 94 L 12/21/21 04:33 FiO2 Intake & Output 12/20/21 12/21/21 12/21/21 18:59 06:59 18:59 Intake Total 2100 1800 Output Total 0 Balance 2100 1800 Intake: IV 900 Intake, IV Titration 1200 1400 Amount Piperacillin-Tazobactam 3 200 .375 gm In Sodium Chloride 0.9% 100 ml @ 25 mls/hr IVPB Q8H [place] Rx#: [id number] Sodium Chloride 0.9% 1, 1200 1200 000 ml @ 100 mls/hr IV . Q10H [place] Rx#:[id number] Oral 400 Output: Estimated Blood Loss 0 Other: Voiding Method Toilet Toilet # Voids 3 5 - Labs CBC & Chem 7: 12/20/21 06:24 12/20/21 06:24 Labs: Abnormal Lab Results - Last 24 Hours (Table) 12/20/21 12/20/21 12/20/21 Range/Units 06:24 06:24 06:24 RBC 4.08 L (4.10-5.20) X 10*6/uL Hgb 11.4 L (12.0-15.0) g/dL Hct 35.7 L (37.2-46.3) % MCHC 31.9 L (32.0-37.0) g/dL MPV 12.4 H (9.5-12.2) fL Immature Gran # 0.11 H (0.00-0.04) X 10*3/uL Anion Gap 9.00 L (10.00-18.00) mmol/L Glucose 42 L* (70-110) mg/dL POC Glucose (mg/dL) (70-110) mg/dL Hemoglobin A1c 7.4 H (0.0-6.0) % Calcium 8.4 L (8.7-10.3) mg/dL Total Bilirubin 0.20 L (0.30-1.20) mg/dL AST 11 L (13-35) U/L ALT 7 L (8-44) U/L Total Protein 5.7 L (6.2-8.2) g/dL Albumin 3.4 L (3.8-4.9) g/dL Albumin/Globulin Ratio 1.48 L (1.60-3.17) g/dL 12/20/21 12/20/21 12/21/21 Range/Units 16:50 20:29 07:00 RBC (4.10-5.20) X 10*6/uL Hgb (12.0-15.0) g/dL Hct (37.2-46.3) % MCHC (32.0-37.0) g/dL MPV (9.5-12.2) fL Immature Gran # (0.00-0.04) X 10*3/uL Anion Gap (10.00-18.00) mmol/L Glucose (70-110) mg/dL POC Glucose (mg/dL) 195 H 114 H 69 L (70-110) mg/dL Hemoglobin A1c (0.0-6.0) % Calcium (8.7-10.3) mg/dL Total Bilirubin (0.30-1.20) mg/dL AST (13-35) U/L ALT (8-44) U/L Total Protein (6.2-8.2) g/dL Albumin (3.8-4.9) g/dL Albumin/Globulin Ratio (1.60-3.17) g/dL Microbiology - Last 24 Hours (Table) 12/19/21 03:53 Blood Culture - Preliminary Blood No Growth after 48 hours 12/19/21 15:51 Blood Culture - Preliminary Blood No Growth after 24 hours 12/18/21 22:27 Urine Culture - Final Urine,Voided
[2021-12-21 10:01] LABS: Prothrombin Time 10.7 sec (9.0-12.0)
--- NOTE | 2021-12-21 10:47 | P.PN ---
Subjective Progress Note Date: 12/21/21 Principal diagnosis: Suspected sigmoid diverticulitis with pericolonic abscess, acute abdominal pain, nausea, left obstructing ureterovesical kidney stone. Patient seen and examined at bedside. Is done well overnight. Denies fever or chills. Tolerated clear liquids. Small loose bowel movement today, admits to flatus. Voiding without issue. Abdominal pain is completely subsided. She is eager to resume diet and go home. Awaiting potential intervention with radiology later today. Preprocedure INR was normal 1.0. Has remained hemodynamically stable and afebrile overnight. Objective - Vital Signs Vital signs: Vital Signs Temp 97.5 F L 12/21/21 04:33 Pulse 56 L 12/21/21 08:00 Resp 18 12/21/21 04:33 BP 117/69 12/21/21 08:00 Pulse Ox 94 L 12/21/21 04:33 FiO2 Intake & Output 12/20/21 12/21/21 12/21/21 18:59 06:59 18:59 Intake Total 2100 1800 Output Total 0 Balance 2100 1800 Intake: IV 900 Intake, IV Titration 1200 1400 Amount Piperacillin-Tazobactam 3 200 .375 gm In Sodium Chloride 0.9% 100 ml @ 25 mls/hr IVPB Q8H [place] Rx#: [id number] Sodium Chloride 0.9% 1, 1200 1200 000 ml @ 100 mls/hr IV . Q10H [place] Rx#:[id number] Oral 400 Output: Estimated Blood Loss 0 Other: Voiding Method Toilet Toilet Toilet # Voids 3 5 - Constitutional General appearance: Present: average body habitus, cooperative - EENT Eyes: Present: EOMI, PERRLA ENT: Present: NA/AT - Respiratory Respiratory: bilateral: CTA - Cardiovascular Rhythm: regular - Gastrointestinal Gastrointestinal Comment(s): Abdomen is soft, nontender to palpation, no guarding rebound or distention. No tenderness on palpation whatsoever. No evidence of regional peritonitis. - Neurologic Neurologic: Present: CNII-XII intact - Musculoskeletal Musculoskeletal: Present: strength equal bilaterally - Psychiatric Psychiatric: Present: A&O x's 3, appropriate affect, intact judgment & insight - Labs CBC & Chem 7: 12/20/21 06:24 12/20/21 06:24 Labs: Abnormal Lab Results - Last 24 Hours (Table) 12/20/21 12/20/21 12/20/21 Range/Units 06:24 06:24 16:50 Anion Gap 9.00 L (10.00-18.00) mmol/L Glucose 42 L* (70-110) mg/dL POC Glucose (mg/dL) 195 H (70-110) mg/dL Hemoglobin A1c 7.4 H (0.0-6.0) % Calcium 8.4 L (8.7-10.3) mg/dL Total Bilirubin 0.20 L (0.30-1.20) mg/dL AST 11 L (13-35) U/L ALT 7 L (8-44) U/L Total Protein 5.7 L (6.2-8.2) g/dL Albumin 3.4 L (3.8-4.9) g/dL Albumin/Globulin Ratio 1.48 L (1.60-3.17) g/dL 12/20/21 12/21/21 Range/Units 20:29 07:00 Anion Gap (10.00-18.00) mmol/L Glucose (70-110) mg/dL POC Glucose (mg/dL) 114 H 69 L (70-110) mg/dL Hemoglobin A1c (0.0-6.0) % Calcium (8.7-10.3) mg/dL Total Bilirubin (0.30-1.20) mg/dL AST (13-35) U/L ALT (8-44) U/L Total Protein (6.2-8.2) g/dL Albumin (3.8-4.9) g/dL Albumin/Globulin Ratio (1.60-3.17) g/dL Microbiology - Last 24 Hours (Table) 12/19/21 03:53 Blood Culture - Preliminary Blood No Growth after 48 hours 12/19/21 15:51 Blood Culture - Preliminary Blood No Growth after 24 hours 12/18/21 22:27 Urine Culture - Final Urine,Voided Assessment and Plan Assessment: 61-year-old lady with first episode of what would appear to be acute sigmoid diverticulitis with contained pericolonic abscess formation. No evidence of sepsis. No previous colonoscopy, rule out underlying neoplasia. No reported history of inflammatory bowel disease. Leukocytosis resolved on antibiotics. Obstructing left ureterovesical kidney stone with hydronephrosis. Creatinine normal range. Pain and nausea resolved post laser lithotripsy and resolution of obstruction. Diabetes mellitus type 2 on oral hypoglycemics. Plan: Awaiting potential image guided aspiration and drain placement later today. If this can't be accessed percutaneously the next step would be laparoscopic drain placement or potential antibiotics and relatively short interval follow-up with imaging to assess for improvement 2 weeks post discharge. Would plan for diag nostic colonoscopy 6-8 weeks after resolution of symptoms and removal of drain. If she has interval decompensation or signs of full-thickness perforation then we would be looking at a sigmoid colectomy with temporizing ostomy. We'll see how her scheduled intervention for today goes to move forward from there. Time with Patient: Greater than 30
[2021-12-21 11:08] LABS: Glucose,Whole Blood 178 mg/dL (70-110)
[2021-12-21 17:10] LABS: Glucose,Whole Blood 339 mg/dL (70-110)
[2021-12-21 20:22] LABS: Glucose,Whole Blood 95 mg/dL (70-110)
[2021-12-21] MEDS: ATORVASTATIN 40 MG TAB PO SCH (20:40)
[2021-12-21] MEDS: HYDROcodone/APAP 5-325MG 1 EACH TAB PO PRN (20:41)
--- NOTE | 2021-12-21 22:08 | P.PN ---
Subjective Progress Note Date: 12/21/21 Patient is a pleasant 61-year-old white female who was seen today feeling better and not much distress at this current time. Patient is suffering from acute diverticulitis flareup with pericolonic abscess currently under investigation by general surgery. She also has complication of a renal stone being evaluated by urology. She stated that urology has cleared her and sent the stone has passed. She denies any fever. Objective - Vital Signs Vital signs: Vital Signs Temp 97.9 F 12/21/21 17:10 Pulse 57 L 12/21/21 17:10 Resp 16 12/21/21 17:10 BP 124/78 12/21/21 17:10 Pulse Ox 97 12/21/21 17:10 FiO2 Intake & Output 12/21/21 12/21/21 12/22/21 06:59 18:59 06:59 Intake Total 1800 1200 Balance 1800 1200 Intake: Intake, IV Titration 1400 1200 Amount Piperacillin-Tazobactam 3 200 .375 gm In Sodium Chloride 0.9% 100 ml @ 25 mls/hr IVPB Q8H [place] Rx#: [id number] Sodium Chloride 0.9% 1, 1200 1200 000 ml @ 100 mls/hr IV . Q10H [place] Rx#:[id number] Oral 400 Other: Voiding Method Toilet Toilet # Voids 5 2 - Exam GENERAL: This is a 61-year-old in no apparent distress at the time of examination. Pleasant and cooperative. HEENT: Head is atraumatic, normocephalic. Pupils are equal, round, and reactive to light. Sclerae anicteric. Conjunctivae are clear. Mucus membranes of the mouth are moist. Neck is supple. RESPIRATORY: Clear to auscultation. No wheezes, rales, or rhonchi. No use of accessory muscles. Patient maintaining oxygen saturation greater than 92%. No chest wall tenderness is noted on palpation or with deep breathing. CARDIOVASCULAR: Regular rate and rhythm. S1 and S2 noted. No systolic or diastolic murmur auscultated. No JVD noted. No S3 or S4 noted. GASTROINTESTINAL: Left lower quadrant and mid epigastric abdominal pain without any rebound rigidity or guarding. Right flank pain has resolved. INTEGUMENTARY: No cyanosis. No jaundice. No rashes noted. No cellulitis noted. EXTREMITIES: 2+ peripheral pulses. No evidence of peripheral edema. No calf tenderness noted. NEUROLOGIC: Cranial nerves II-XII intact. PSYCHIATRIC: Awake, alert, and oriented X 3. Appropriate affect. Intact judgement and insight. - Labs CBC & Chem 7: 12/20/21 06:24 12/20/21 06:24 Labs: Abnormal Lab Results - Last 24 Hours (Table) 12/20/21 12/21/21 12/21/21 Range/Units 06:24 07:00 11:07 POC Glucose (mg/dL) 69 L 178 H (70-110) mg/dL Hemoglobin A1c 7.4 H (0.0-6.0) % 12/21/21 Range/Units 17:08 POC Glucose (mg/dL) 339 H (70-110) mg/dL Hemoglobin A1c (0.0-6.0) % Microbiology - Last 24 Hours (Table) 12/19/21 15:51 Blood Culture - Preliminary Blood No Growth after 48 hours 12/19/21 03:53 Blood Culture - Preliminary Blood No Growth after 48 hours Assessment and Plan (1) Calculus of ureter Current Visit: Yes Status: Acute Code(s): N20.1 - CALCULUS OF URETER SNOMED Code(s): 58532736 (2) Diverticulitis of intestine with abscess Current Visit: Yes Status: Acute Code(s): K57.80 - DVTRCLI OF INTEST, PART UNSP, W PERF AND ABSCESS W/O BLEED SNOMED Code(s): 738496928 (3) Hydronephrosis with obstructing calculus Current Visit: Yes Status: Acute Code(s): N13.2 - HYDRONEPHROSIS WITH RENAL AND URETERAL CALCULOUS OBSTRUCTION SNOMED Code(s): 16246264 (4) Kidney stone Current Visit: Yes Status: Acute Code(s): N20.0 - CALCULUS OF KIDNEY SNOMED Code(s): 40491394 Plan: Patient is doing quite well today she remains on IV antibiotics her stone according to urology has past. She still suffers from a little bit of left lower quadrant abdominal pain due to a pericolonic abscess of her diverticuli. This is currently under investigation and may need further procedure. We'll continue to follow patient's progress.
[2021-12-22] MEDS: SODIUM CHLORIDE 0.9% 1,000 ML IV SCH (00:05)
[2021-12-22] MEDS: PIPERACILLIN-TAZOBACTAM 3.375 GM in SODIUM CHLORIDE 0.9% 100 ML IVPB SCH (04:33)
[2021-12-22 07:07] LABS: Glucose,Whole Blood 123 mg/dL (70-110)
[2021-12-22 07:11] VITALS: BP 143/81; PULSE 94; RESP 15; TEMP 98.2
[2021-12-22] MEDS: INSULIN ASPART (NovoLOG) 100 UNIT/ML VIAL SQ SCH (07:15)
[2021-12-22] MEDS: PANTOPRAZOLE 40 MG/10 ML VIAL IVP SCH (08:47)
[2021-12-22] MEDS: HEPARIN SODIUM,PORCINE/PF 5,000 UNIT/0.5 ML SYRINGE SQ SCH (08:48)
[2021-12-22] MEDS: lisinopriL 5 MG TAB PO SCH (08:48)
[2021-12-22] MEDS: NEBIVOLOL 5 MG TAB PO SCH (08:48)
[2021-12-22] MEDS: NICOTINE 14MG/24HR PATCH TRANSDERM SCH (08:49)
--- NOTE | 2021-12-22 10:32 | P.DS ---
Providers Date of admission: 12/19/21 00:56 Expected date of discharge: 12/22/21 Attending physician: Luigi Gonzales Consults: 12/19/21 00:51 Consult Physician Urgent Consulting Provider: Harjit Angel Consult Reason/Comments: Obstructing calculus with hydronephrosis Do you want consulting provider notified?: Yes Consult Physician Urgent Consulting Provider: Andrea Samaniego Consult Reason/Comments: Diverticulitis with abscess Do you want consulting provider notified?: Yes Primary care physician: Luigi Gonzales Hospital Course: Final Diagnoses: (1) Calculus of ureter Current Visit: Yes Status: Acute Code(s): N20.1 - CALCULUS OF URETER SNOMED Code(s): 36925088 (2) Diverticulitis of intestine with abscess Current Visit: Yes Status: Acute Code(s): K57.80 - DVTRCLI OF INTEST, PART UNSP, W PERF AND ABSCESS W/O BLEED SNOMED Code(s): 077333313 (3) Hydronephrosis with obstructing calculus Current Visit: Yes Status: Acute Code(s): N13.2 - HYDRONEPHROSIS WITH RENAL AND URETERAL CALCULOUS OBSTRUCTION SNOMED Code(s): 03866968 (4) Kidney stone Current Visit: Yes Status: Acute Code(s): N20.0 - CALCULUS OF KIDNEY SNOMED Code(s): 07636383 (5) diabetes mellitus, A1c 7.4, further diabetic education outpatient. Hospital course:Patient is a pleasant 61-year-old white female who was seen today feeling better and not much distress at this current time. Patient is suffering from acute diverticulitis flareup with pericolonic abscess currently under investigation by general surgery. She also has complication of a renal stone being evaluated by urology. She stated that urology has cleared her and sent the stone has passed. She denies any fever. Gen. surgery discussed potential image guided aspiration and drain placement as per interventional radiology, unable to be performed. Pain controlled. Significant clinical improvement. Cleared by general surgery and urology for discharge. Patient will be discharged home today on Augmentin 10 days as recommended per surgery . Gen. surgery recommending a follow-up CT in 2 weeks- to be ordered by general surgery.General surgery discussing diagnostic colonoscopy 6-8 weeks after resolution of symptoms. The impression and plan of care has been dictated as directed. : I performed a history and examination of this patient, discussed the same with the dictator. I agree with the dictator's note ,documented as a scribe. Any additional findings or plans will be noted. Patient Condition at Discharge: Stable Plan - Discharge Summary Discharge Rx Participant: Yes New Discharge Prescriptions: New Nicotine 14Mg/24Hr Patch [Habitrol] 1 patch TRANSDERM DAILY patch HYDROcodone/APAP 5-325MG [[place] 5-325] 1 each PO Q6HR PRN #12 tab PRN Reason: Pain Amoxic-Pot Clav 875-125Mg [Augmentin 875-125] 1 tab PO BID 10 Days #20 tab Continue Atorvastatin [Lipitor] 40 mg PO HS Nebivolol HCl [Bystolic] 10 mg PO DAILY metFORMIN HCL [Glucophage] 1,000 mg PO BID lisinopriL [Zestril] 5 mg PO DAILY Glimepiride [Amaryl] 2 mg PO BID Discharge Medication List Atorvastatin [Lipitor] 40 mg PO HS 03/21/18 [History] Nebivolol HCl [Bystolic] 10 mg PO DAILY 03/21/18 [History] Glimepiride [Amaryl] 2 mg PO BID 12/19/21 [History] lisinopriL [Zestril] 5 mg PO DAILY 12/19/21 [History] metFORMIN HCL [Glucophage] 1,000 mg PO BID 12/19/21 [History] Amoxic-Pot Clav 875-125Mg [Augmentin 875-125] 1 tab PO BID 10 Days #20 tab 12/22/21 [Rx] HYDROcodone/APAP 5-325MG [[place] 5-325] 1 each PO Q6HR PRN #12 tab 12/22/21 [Rx] Nicotine 14Mg/24Hr Patch [Habitrol] 1 patch TRANSDERM DAILY patch 12/22/21 [Rx] Follow up Appointment(s)/Referral(s): Harjit Angel MD [STAFF PHYSICIAN] - 3 Weeks Luigi Gonzales DO [Primary Care Provider] - 3 Days Andrea Samaniego DO [Doctor of Osteopathic Medicine] - 1 Week Activity/Diet/Wound Care/Special Instructions: Gen. surgery recommending repeat CT in 2 weeks-to be ordered by general surgery.
[2021-12-22 11:05] LABS: Glucose,Whole Blood 167 mg/dL (70-110)
== END 2021-12-22 12:00 | disposition home or self-care (01) | DRG 694 ==
LOC: EC 18:57 → 5NMEDONC 12-19 00:56
PROVIDERS: ADMIT Family Medicine; ATTEND Family Medicine
PROC: 0TC78ZZ Extirpation of Matter from Left Ureter, Via Natural or Artificial Opening Endoscopic (ICD-10-PCS; principal; 2021-12-20 08:00)
PROC: BT1F0ZZ Fluoroscopy of Left Kidney, Ureter and Bladder using High Osmolar Contrast (ICD-10-PCS; principal; 2021-12-20 08:00)
DX: N13.2 Hydronephrosis with renal and ureteral calculous obstruction (principal); K57.20 Diverticulitis of large intestine with perforation and abscess without bleeding; E11.649 Type 2 diabetes mellitus with hypoglycemia without coma; Z28.310 Unvaccinated for COVID-19; E78.5 Hyperlipidemia, unspecified; I10 Essential (primary) hypertension; F17.210 Nicotine dependence, cigarettes, uncomplicated; Z71.6 Tobacco abuse counseling; Z79.84 Long term (current) use of oral hypoglycemic drugs; Z79.899 Other long term (current) drug therapy; Z87.442 Personal history of urinary calculi
CPT/HCPCS: 36415; 74177; 74420; 80053; 80061; 81001; 82150; 82365; 83036; 83605; 83690; 84439; 84443; 85025; 85610; 87040; 87086; 96374; 96375; 96376; 99285

== ENCOUNTER 2024-03-02 08:18 | Emergency (ER) | payer MEDICARE, BC ==
[2024-03-02 08:29] VITALS: TEMP 97.7
[2024-03-02] MEDS: ONDANSETRON 4 MG/2 ML VIAL IVP STA (08:59)
[2024-03-02] MEDS: KETOROLAC 15 MG/ML 1 ML VIAL IVP STA (08:59)
[2024-03-02] MEDS: HYDROmorphone 0.5 MG/0.5 ML SYRINGE IVP STA (09:00)
[2024-03-02] MEDS: SODIUM CHLORIDE 0.9% 500 ML 500 ML IV STA (09:00)
[2024-03-02] MEDS: SODIUM CHLORIDE 0.9% 1,000 ML IV STA (09:00)
[2024-03-02 09:02] LABS: Basophils # (A) 0.1 k/uL (0-0.2); Basophils % (A) 0 %; Eosinophils # (A) 0.1 k/uL (0-0.7); Eosinophils % (A) 1 %; HCT 46.9 % (34.0-46.0); HGB 15.5 gm/dL (11.4-16.0); Lymphocytes # (A) 2.2 k/uL (1.0-4.8); Lymphocytes % (A) 15 %; MCH 29.8 pg (25.0-35.0); MCHC 33.1 g/dL (31.0-37.0); Mean Platelet Volume 8.9; Monocytes # (A) 0.5 k/uL (0-1.0); Monocytes % (A) 4 %; Neutrophils # (A) 12.1 k/uL (1.3-7.7); Neutrophils % (A) 80 %; Platelet Count 202 k/uL (150-450); RBC 5.21 m/uL (3.80-5.40); RDW 13.5 % (11.5-15.5); WBC 15.2 k/uL (3.8-10.6)
--- NOTE | 2024-03-02 09:14 | ED ---
Abdominal Pain HPI - General Chief Complaint: Abdominal Pain Stated Complaint: Abd pain,vomiting Time Seen by Provider: 03/02/24 08:33 Source: patient, RN notes reviewed Mode of arrival: ambulatory Limitations: no limitations - History of Present Illness Initial Comments: 63-year-old female presents emergency department with chief complaint of abdominal pain. Patient states she has left lower quadrant abdominal pain history of diverticulitis and kidney stones states feels like both. Patient states she is nauseated, dry heaving. She states she has been having bowel movements states is uncomfortable. No dysuria no fevers or chills. No prior abdominal surgeries - Related Data Home Medications Medication Instructions Recorded Confirmed Atorvastatin [Lipitor] 40 mg PO HS 03/21/18 12/19/21 Nebivolol HCl [Bystolic] 10 mg PO DAILY 03/21/18 12/19/21 Glimepiride [Amaryl] 2 mg PO BID 12/19/21 12/19/21 lisinopriL [Zestril] 5 mg PO DAILY 12/19/21 12/19/21 metFORMIN HCL [Glucophage] 1,000 mg PO BID 12/19/21 12/19/21 Previous Rx's Medication Instructions Recorded Amoxic-Pot Clav 875-125Mg 1 tab PO BID 10 Days #20 tab 12/22/21 [Augmentin 875-125] HYDROcodone/APAP 5-325MG [[place] 1 each PO Q6HR PRN #12 tab 12/22/21 5-325] Nicotine 14Mg/24Hr Patch [Habitrol] 1 patch TRANSDERM DAILY patch 12/22/21 Ketorolac [Toradol] 10 mg PO Q8HR #15 tab 03/02/24 Ondansetron Odt [Zofran Odt] 4 mg PO Q8HR PRN #14 tab 03/02/24 Allergies Allergy/AdvReac Type Severity Reaction Status Date / Time No Known Allergies Allergy Verified 03/02/24 08:26 Review of Systems ROS Statement: Those systems with pertinent positive or pertinent negative responses have been documented in the HPI. ROS Other: All systems not noted in ROS Statement are negative. Past Medical History Past Medical History: Diabetes Mellitus, Hyperlipidemia, Hypertension History of Any Multi-Drug Resistant Organisms: None Reported Past Surgical History: Tubal Ligation Additional Past Surgical History / Comment(s): carpal tunnel, rotator cuff Past Anesthesia/Blood Transfusion Reactions: No Reported Reaction Past Psychological History: No Psychological Hx Reported Smoking Status: Current every day smoker Past Alcohol Use History: None Reported Past Drug Use History: None Reported General Exam Limitations: no limitations General appearance: alert, in no apparent distress Head exam: Present: atraumatic, normocephalic, normal inspection Eye exam: Present: normal appearance, PERRL, EOMI. Absent: scleral icterus, conjunctival injection, periorbital swelling Neck exam: Present: full ROM Respiratory exam: Present: normal lung sounds bilaterally. Absent: respiratory distress, wheezes, rales, rhonchi, stridor Cardiovascular Exam: Present: regular rate, normal rhythm, normal heart sounds. Absent: systolic murmur, diastolic murmur, rubs, gallop, clicks GI/Abdominal exam: Present: soft, tenderness, normal bowel sounds. Absent: dist ended, guarding, rebound, rigid Course Vital Signs 03/02/24 03/02/24 03/02/24 08:26 11:00 12:47 Temperature 97.7 F Pulse Rate 100 74 Pulse Rate [ 85 Sitting Wall Cleaner] Pulse Rate [ 85 Standing Wall Cleaner ] Pulse Rate [ 75 Supine Wall Cleaner] Respiratory 22 18 17 Rate Blood Pressure 156/90 89/68 Blood Pressure 107/76 [Right Arm Sitting] Blood Pressure 110/80 [Right Arm Standing] Blood Pressure 110/75 [Right Arm Supine] O2 Sat by Pulse 99 98 Oximetry 03/02/24 12:52 Temperature Pulse Rate Pulse Rate [ Sitting Wall Cleaner] Pulse Rate [ Standing Wall Cleaner ] Pulse Rate [ Supine Wall Cleaner] Respiratory Rate Blood Pressure 129/86 Blood Pressure [Right Arm Sitting] Blood Pressure [Right Arm Standing] Blood Pressure [Right Arm Supine] O2 Sat by Pulse Oximetry Medical Decision Making - Medical Decision Making Was pt. sent in by a medical professional or institution (, PA, OCCUPATIONAL THERAPY SUPERVISOR, urgent care, hospital, or fpc...) When possible be specific @ -No Did you speak to anyone other than the patient for history (EMS, parent, family, police, friend...)? What history was obtained from this source @ -No Did you review nursing and triage notes (agree or disagree)? Why? @ -I reviewed and agree with nursing and triage notes Were old charts reviewed (outside hosp., previous admission, EMS record, old EKG, old radiological studies, urgent care reports/EKG's, fpc records)? Report findings @ -No old charts were reviewed Differential Diagnosis (chest pain, altered mental status, abdominal pain women, abdominal pain men, vaginal bleeding, weakness, fever, dyspnea, syncope, headach e, dizziness, GI bleed, back pain, seizure, CVA, palpatations, mental health, musculoskeletal)? @ - differential Abdominal Pain Women: Appendicitis, Cholecystitis, diverticulosis, ischemic bowel, pancreatitis, hepatitis, UTI, gastroenteritis, AAA, incarcerated hernia, bowel obstruction, constipation, inflammatory bowel, hepatitis, peptic ulcer disease, splenic infarction, perforated viscus, vulvitis, ovarian torsion, PID, kidney stone, placenta abruption, this is not meant to be an all-inclusive list EKG interpreted by me (3pts min.). @ -None X-rays interpreted by me (1pt min.). @ -None done CT interpreted by me (1pt min.). @ -CT of the abdomen pelvis showing 4 to 5 mm left UVJ stone U/S interpreted by me (1pt. min.). @ -None done What testing was considered but not performed or refused? (CT, X-rays, U/S, labs)? Why? @ -None What meds were considered but not given or refused? Why? @ -None Did you discuss the management of the patient with other professionals (professionals i.e. , PA, OCCUPATIONAL THERAPY SUPERVISOR, lab, RT, psych nurse, social work specialist, tin pot operator, teacher, safety patrol officer, case reviewer)? Give summary @ -No Was smoking cessation discussed for >3mins.? @ -No Was critical care preformed (if so, how long)? @ -No Were there social determinants of health that impacted care today? How? (Homelessness, low income, unemployed, alcoholism, drug addiction, transportation, low edu. Level, literacy, decrease access to med. care, penitentiary, rehab)? @ -No Was there de-escalation of care discussed even if they declined (Discuss DNR or withdrawal of care, Hospice)? DNR status @ -No What co-morbidities impacted this encounter? (DM, HTN, Smoking, COPD, CAD, Cancer, CVA, ARF, Chemo, Hep., AIDS, mental health diagnosis, sleep apnea, morbid obesity)? @ -None Was patient admitted / discharged? Hospital course, mention meds given and route, prescriptions, significant lab abnormalities, going to OR and other p ertinent info. @ -Discharged patient feels greatly improved. Patient vitals are stable patient discharged with antiemetics analgesics patient has no signs of infection return pressure discussed. Undiagnosed new problem with uncertain prognosis? @ -No Drug Therapy requiring intensive monitoring for toxicity (Heparin, Nitro, Insulin, Cardizem)? @ -No Were any procedures done? @ -No Diagnosis/symptom? @ -Left ureteral calculus Acute, or Chronic, or Acute on Chronic? @ -Acute Uncomplicated (without systemic symptoms) or Complicated (systemic symptoms)? @ -Uncomplicated Side effects of treatment? @ -No Exacerbation, Progression, or Severe Exacerbation? @ -No Poses a threat to life or bodily function? How? (Chest pain, [place], AR, pneumonia, PE, COPD, DKA, ARF, appy, cholecystitis, CVA, Diverticulitis, Homicidal, Suicidal, threat to staff... and all critical care pts) @ -No - Lab Data Result diagrams: 03/02/24 08:57 03/02/24 08:57 Lab Results 03/02/24 03/02/24 03/02/24 Range/Units 08:57 08:57 08:57 WBC 15.2 H (3.8-10.6) k/uL RBC 5.21 (3.80-5.40) m/uL Hgb 15.5 (11.4-16.0) gm/dL Hct 46.9 H (34.0-46.0) % MCV 90.0 (80.0-100.0) fL MCH 29.8 (25.0-35.0) pg MCHC 33.1 (31.0-37.0) g/dL RDW 13.5 (11.5-15.5) % Plt Count 202 (150-450) k/uL MPV 8.9 Neutrophils % 80 % Lymphocytes % 15 % Monocytes % 4 % Eosinophils % 1 % Basophils % 0 % Neutrophils # 12.1 H (1.3-7.7) k/uL Lymphocytes # 2.2 (1.0-4.8) k/uL Monocytes # 0.5 (0-1.0) k/uL Eosinophils # 0.1 (0-0.7) k/uL Basophils # 0.1 (0-0.2) k/uL Sodium 136 L (137-145) mmol/L Potassium 4.3 (3.5-5.1) mmol/L Chloride 103 (98-107) mmol/L Carbon Dioxide 20 L (22-30) mmol/L Anion Gap 13 mmol/L BUN 22 H (7-17) mg/dL Creatinine 0.96 (0.52-1.04) mg/dL Est GFR (CKD-EPI)AfAm 74 (>60 ml/min/1.73 sqM) Est GFR (CKD-EPI)NonAf 64 (>60 ml/min/1.73 sqM) Glucose 215 H (74-99) mg/dL Lactic Ac Sepsis Rflx Plasma Lactic Acid [place] 2.1 H* (0.7-2.0) mmol/L Calcium 9.9 (8.4-10.2) mg/dL Total Bilirubin 0.8 (0.2-1.3) mg/dL AST 29 (14-36) U/L ALT 16 (4-34) U/L Alkaline Phosphatase 90 (38-126) U/L Total Protein 8.2 (6.3-8.2) g/dL Albumin 4.9 (3.5-5.0) g/dL Lipase 179 (23-300) U/L Urine Color Urine Appearance (Clear) Urine pH (5.0-8.0) Ur Specific [place] (1.001-1.035) Urine Protein (Negative) Urine Glucose (UA) (Negative) Urine Ketones (Negative) Urine Blood (Negative) Urine Nitrite (Negative) Urine Bilirubin (Negative) Urine Urobilinogen (<2.0) mg/dL Ur Leukocyte Esterase (Negative) Urine RBC (0-5) /hpf Urine WBC (0-5) /hpf Ur Squamous Epith Cells (0-4) /hpf Calcium Oxalate Crystal (None) /hpf Amorphous Sediment (None) /hpf Urine Bacteria (None) /hpf Urine Mucus (None) /hpf 03/02/24 03/02/24 Range/Units 09:39 11:31 WBC (3.8-10.6) k/uL RBC (3.80-5.40) m/uL Hgb (11.4-16.0) gm/dL Hct (34.0-46.0) % MCV (80.0-100.0) fL MCH (25.0-35.0) pg MCHC (31.0-37.0) g/dL RDW (11.5-15.5) % Plt Count (150-450) k/uL MPV Neutrophils % % Lymphocytes % % Monocytes % % Eosinophils % % Basophils % % Neutrophils # (1.3-7.7) k/uL Lymphocytes # (1.0-4.8) k/uL Monocytes # (0-1.0) k/uL Eosinophils # (0-0.7) k/uL Basophils # (0-0.2) k/uL Sodium (137-145) mmol/L Potassium (3.5-5.1) mmol/L Chloride (98-107) mmol/L Carbon Dioxide (22-30) mmol/L Anion Gap mmol/L BUN (7-17) mg/dL Creatinine (0.52-1.04) mg/dL Est GFR (CKD-EPI)AfAm (>60 ml/min/1.73 sqM) Est GFR (CKD-EPI)NonAf (>60 ml/min/1.73 sqM) Glucose (74-99) mg/dL Lactic Ac Sepsis Rflx Y Plasma Lactic Acid [place] (0.7-2.0) mmol/L Calcium (8.4-10.2) mg/dL Total Bilirubin (0.2-1.3) mg/dL AST (14-36) U/L ALT (4-34) U/L Alkaline Phosphatase (38-126) U/L Total Protein (6.3-8.2) g/dL Albumin (3.5-5.0) g/dL Lipase (23-300) U/L Urine Color Red Urine Appearance Turbid H (Clear) Urine pH 5.5 (5.0-8.0) Ur Specific [place] 1.024 (1.001-1.035) Urine Protein 2+ H (Negative) Urine Glucose (UA) 1+ H (Negative) Urine Ketones 1+ H (Negative) Urine Blood Large H (Negative) Urine Nitrite Negative (Negative) Urine Bilirubin Negative (Negative) Urine Urobilinogen 2.0 (<2.0) mg/dL Ur Leukocyte Esterase Moderate H (Negative) Urine RBC >182 H (0-5) /hpf Urine WBC 10 H (0-5) /hpf Ur Squamous Epith Cells 49 H (0-4) /hpf Calcium Oxalate Crystal Many H (None) /hpf Amorphous Sediment Rare H (None) /hpf Urine Bacteria Occasional H (None) /hpf Urine Mucus Many H (None) /hpf Disposition Clinical Impression: Left ureteral calculus Disposition: HOME SELF-CARE Condition: Stable Instructions (If sedation given, give patient instructions): Kidney Stones (ED) Additional Instructions: Please return to the Emergency Department if symptoms worsen or any other concerns. Prescriptions: Ketorolac [Toradol] 10 mg PO Q8HR #15 tab Ondansetron Odt [Zofran Odt] 4 mg PO Q8HR PRN #14 tab PRN Reason: Nausea Is patient prescribed a controlled substance at d/c from ED?: No Referrals: Luigi Gonzales DO [Primary Care Provider] - 1-2 days Max Prasad MD [STAFF PHYSICIAN] - 1-2 days Time of Disposition: 12:53
[2024-03-02 09:48] LABS: ALT 16 U/L (4-34); AST 29 U/L (14-36); African American GFR (CKD) 74 (>60 ml/min/1.73 sqM); Albumin 4.9 g/dL (3.5-5.0); Alkaline Phosphatase 90 U/L (38-126); Anion Gap 13 mmol/L; Blood Urea Nitrogen 22 mg/dL (7-17); Calcium 9.9 mg/dL (8.4-10.2); Carbon Dioxide 20 mmol/L (22-30); Chloride 103 mmol/L (98-107); Glucose 215 mg/dL (74-99); Lipase 179 U/L (23-300); Non-African American GFR(CKD) 64 (>60 ml/min/1.73 sqM); Potassium 4.3 mmol/L (3.5-5.1); Sodium 136 mmol/L (137-145); Total Bilirubin 0.8 mg/dL (0.2-1.3); Total Protein 8.2 g/dL (6.3-8.2)
--- NOTE | 2024-03-02 11:21 | CT ---
EXAMINATION TYPE: CT abdomen pelvis w con DATE OF EXAM: 03/02/2024 COMPARISON: 12/18/2021 CLINICAL INDICATION: Female, 63 years old with history of LLQ pain; PHH, LLQ abominal pain x 2 days TECHNIQUE: Performed without Oral Contrast and with IV Contrast, patient injected with 80 mL of Isovue 300. CT DLP: 1103.[address] CTDI: mGy Automated exposure control for dose reduction was used. FINDINGS: The lung bases are clear. The gallbladder is normal without distention, wall thickening, pericholecystic fluid or gallstones. T here is no biliary ductal dilatation. There is no focal mass or organomegaly involving the liver, pancreas, spleen or adrenal glands. There is moderate left hydronephrosis and hydroureter secondary to an obstructing 4 to 5 mm left UVJ calculus. The right kidney is unremarkable without hydronephrosis, calculus or mass. The caliber the abdominal aorta is normal is no retroperitoneal adenopathy or hemorrhage. The bowel loops are normal in caliber and there is no evidence of dilatation or obstruction. No infla mmatory changes are identified in the bowel wall or mesentery. There is no free intraperitoneal air or fluid. No pelvic mass, free fluid, abscess or adenopathy. The osseous structures and soft tissues are intact. IMPRESSION: 4 to 5 mm left UVJ calculus resulting in moderate left hydronephrosis and hydroureter. No other acute changes within the abdomen or pelvis. [facility], , 03/02/2024 11:18 AM
[2024-03-02 12:02] LABS: Amorphous Sediment,Urine Rare /hpf; Appearance,Urine Turbid (Clear); Bacteria,Urine Occasional /hpf; Bilirubin,Urine Negative (Negative); Blood,Urine Large (Negative); Calcium Oxalate Crystals,Urine Many /hpf; Color,Urine Red; Glucose,Urine (UA) 1+ (Negative); Ketones,Urine 1+ (Negative); Leukocyte Esterase,Urine Moderate (Negative); Mucus,Urine Many /hpf; Nitrite,Urine Negative (Negative); PH, Urine 5.5 (5.0-8.0); Protein,Urine 2+ (Negative); RBC,Urine >182 /hpf (0-5); Specific Gravity,Urine 1.024 (1.001-1.035); Squamous Epithelial Cell,Urine 49 /hpf (0-4); WBC,Urine 10 /hpf (0-5)
[2024-03-02 12:52] VITALS: PULSE 75; RESP 17
[2024-03-02 12:53] VITALS: BP 129/86
[2024-03-02] MEDS: ACET/COD 300 MG/30 MG STARTER PACK 6 TAB BTL PO STA (13:03)
== END 2024-03-02 13:09 | disposition home or self-care (01) ==
LOC: EC 08:18
DX: N13.2 Hydronephrosis with renal and ureteral calculous obstruction (principal); F17.200 Nicotine dependence, unspecified, uncomplicated
CPT/HCPCS: 36415; 80053; 83605; 83690; 85025; 81001; 74177; 99284; 96374; 96375 ×2; 96361; J2405; J1885; J1171; Q9967

== ENCOUNTER 2024-05-26 18:08 | Emergency (ER) | payer MEDICARE, BC ==
--- NOTE | 2024-05-26 18:40 | ED ---
ENT HPI - General Chief complaint: ENT Stated complaint: throat swollen Time Seen by Provider: 05/26/24 18:29 Source: patient Mode of arrival: ambulatory Limitations: no limitations - History of Present Illness Initial comments: 63-year-old female presenting with chief complaint of swelling to the neck and chin. Patient was recently on a 21-day cruise, just got back today. She reports that about 2 to 3 days ago she started experiencing some swelling under her chin. This area is a bit hard and does well. She is having difficulty swallowing. She feels like her voice sounds a bit muffled, however she also reports that her ears have not "popped" since getting off the plane so that may be due to to that. She denies any drooling. This was preceded by some sinus congestion and drainage. No fever. She does have several dental caries and fractured teeth, no dental pain. She has 1/2 pack/day smoker. - Related Data Home Medications Medication Instructions Recorded Confirmed Atorvastatin [Lipitor] 40 mg PO HS 03/21/18 12/19/21 Nebivolol HCl [Bystolic] 10 mg PO DAILY 03/21/18 12/19/21 Glimepiride [Amaryl] 2 mg PO BID 12/19/21 12/19/21 lisinopriL [Zestril] 5 mg PO DAILY 12/19/21 12/19/21 metFORMIN HCL [Glucophage] 1,000 mg PO BID 12/19/21 12/19/21 Previous Rx's Medication Instructions Recorded Amoxic-Pot Clav 875-125Mg 1 tab PO BID 10 Days #20 tab 12/22/21 [Augmentin 875-125] HYDROcodone/APAP 5-325MG [Marissa 1 each PO Q6HR PRN #12 tab 12/22/21 5-325] Nicotine 14Mg/24Hr Patch [Habitrol] 1 patch TRANSDERM DAILY patch 12/22/21 Ketorolac [Toradol] 10 mg PO Q8HR #15 tab 03/02/24 Ondansetron Odt [Zofran Odt] 4 mg PO Q8HR PRN #14 tab 03/02/24 Amoxic-Pot Clav 875-125Mg 1 tab PO BID 10 Days #20 tab 05/26/24 [Augmentin 875-125] Allergies Allergy/AdvReac Type Severity Reaction Status Date / Time No Known Allergies Allergy Verified 05/26/24 18:28 Review of Systems ROS Statement: Those systems with pertinent positive or pertinent negative responses have been documented in the HPI. ROS Other: All systems not noted in ROS Statement are negative. Past Medical History Past Medical History: Diabetes Mellitus, Hyperlipidemia, Hypertension History of Any Multi-Drug Resistant Organisms: None Reported Past Surgical History: Tubal Ligation Additional Past Surgical History / Comment(s): carpal tunnel, rotator cuff Past Anesthesia/Blood Transfusion Reactions: No Reported Reaction Past Psychological History: No Psychological Hx Reported Smoking Status: Current every day smoker Past Alcohol Use History: None Reported Past Drug Use History: None Reported General Exam Limitations: no limitations General appearance: alert, in no apparent distress Head exam: Present: atraumatic, normocephalic, normal inspection Eye exam: Present: normal appearance, EOMI Expanded Teeth exam: Present: dental caries, fractured tooth #. Absent: dental tenderness # Throat exam: normal inspection Neck exam: Present: other (Submandibular swelling and induration) Respiratory exam: Absent: respiratory distress Cardiovascular Exam: Present: regular rate Neurological exam: Present: alert, oriented X3 Psychiatric exam: Present: normal affect, normal mood Skin exam: Present: warm, dry, normal color Course Vital Signs 05/26/24 18:24 Temperature 98.9 F Pulse Rate 86 Respiratory 18 Rate Blood Pressure 130/74 O2 Sat by Pulse 97 Oximetry Medical Decision Making - Medical Decision Making Was pt. sent in by a medical professional or institution (, PA, GEAR CHANGER, urgent care, hospital, or senior living...) When possible be specific @ -No Did you speak to anyone other than the patient for history (EMS, parent, family, police, friend...)? What history was obtained from this source @ -No Did you review nursing and triage notes (agree or disagree)? Why? @ -I reviewed and agree with nursing and triage notes Were old charts reviewed (outside hosp., previous admission, EMS record, old EKG, old radiological studies, urgent care reports/EKG's, senior living records)? Report findings @ -No old charts were reviewed Differential Diagnosis (chest pain, altered mental status, abdominal pain women, abdominal pain men, vaginal bleeding, weakness, fever, dyspnea, syncope, headache, dizziness, GI bleed, back pain, seizure, CVA, palpatations, mental health, musculoskeletal)? @ -Differential includes lymphadenopathy, abscess, Thanh's angina, cellulitis, allergic reaction, not an all-inclusive list EKG interpreted by me (3pts min.). @ -As above X-rays interpreted by me (1pt min.). @ -None done CT interpreted by me (1pt min.). @ -CT shows no drainable fluid collection/abscess or discrete abnormality identified in the submandibular region of interest. Extensive paranasal sinus disease with air-fluid level suggesting component of acute etiology U/S interpreted by me (1pt. min.). @ -None done What testing was considered but not performed or refused? (CT, X-rays, U/S, labs)? Why? @ -None What meds were considered but not given or refused? Why? @ -None Did you discuss the management of the patient with other professionals (professionals i.e. , PA, GEAR CHANGER, lab, RT, psych nurse, oncology social worker, tablet making machine operator, teacher, community liaison officer, bottle caser)? Give summary @ -No Was smoking cessation discussed for >3mins.? @ -No Was critical care preformed (if so, how long)? @ -No Were there social determinants of health that impacted care today? How? (Homelessness, low income, unemployed, alcoholism, drug addiction, transportation, low edu. Level, literacy, decrease access to med. care, usp, rehab)? @ -No Was there de-escalation of care discussed even if they declined (Discuss DNR or withdrawal of care, Hospice)? DNR status @ -No What co-morbidities impacted this encounter? (DM, HTN, Smoking, COPD, CAD, Cancer, CVA, ARF, Chemo, Hep., AIDS, mental health diagnosis, sleep apnea, morbid obesity)? @ -None Was patient admitted / discharged? Hospital course, mention meds given and route, prescriptions, significant lab abnormalities, going to OR and other pertinent info. @ -63-year-old female presenting with chief complaint of submandibular swelling that started about 3 days ago. She is having some difficulty swallowing. She is also having sinus drainage. History and physical examination are conducted. No hot potato voice drooling or tripoding. She is having no difficulty breathing. Normal posterior pharynx. There is a bit of swelling in the submental region. She is given Decadron 10 mg. White count 12.7. Potassium is hemolyzed at 5.5. Lactic acid 2.1. She is negative for influenza, RSV, COVID, group A strep. Soft tissue neck CT shows no discernible abnormality in the area of interest. There is evidence of acute sinusitis. Patient is educated on today's findings. We will treat with Augmentin 875 twice daily for 10 days. Follow-up with PCP. Report back to ER with any new or worsening symptoms. Discussed return parameters and answered all questions. Patient conveyed verbal understanding and agreed to the plan. I discussed this case in detail with my attending Dr. Turner Undiagnosed new problem with uncertain prognosis? @ -No Drug Therapy requiring intensive monitoring for toxicity (Heparin, Nitro, Insulin, Cardizem)? @ -No Were any procedures done? @ -No Diagnosis/symptom? @ -Acute sinusitis, submental swelling Acute, or Chronic, or Acute on Chronic? @ -Acute Uncomplicated (without systemic symptoms) or Complicated (systemic symptoms)? @ -Uncomplicated Side effects of treatment? @ -No Exacerbation, Progression, or Severe Exacerbation? @ -No Poses a threat to life or bodily function? How? (Chest pain, [place], [place], pneumonia, PE, COPD, DKA, ARF, appy, cholecystitis, CVA, Diverticulitis, Homicidal, Suicidal, threat to staff... and all critical care pts) @ -Low likelihood - Lab Data Result diagrams: 05/26/24 18:47 05/26/24 18:47 Lab Results 05/26/24 05/26/24 05/26/24 Range/Units 18:47 18:47 18:47 WBC 12.7 H (3.8-10.6) k/uL RBC 5.01 (3.80-5.40) m/uL Hgb 14.8 (11.4-16.0) gm/dL Hct 45.0 (34.0-46.0) % MCV 89.8 (80.0-100.0) fL MCH 29.5 (25.0-35.0) pg MCHC 32.9 (31.0-37.0) g/dL RDW 13.8 (11.5-15.5) % Plt Count 318 (150-450) k/uL MPV 8.3 Neutrophils % 67 % Lymphocytes % 23 % Monocytes % 6 % Eosinophils % 1 % Basophils % 1 % Neutrophils # 8.5 H (1.3-7.7) k/uL Lymphocytes # 2.9 (1.0-4.8) k/uL Monocytes # 0.7 (0-1.0) k/uL Eosinophils # 0.2 (0-0.7) k/uL Basophils # 0.1 (0-0.2) k/uL Sodium 138 (137-145) mmol/L Potassium 5.5 H (3.5-5.1) mmol/L Chloride 102 (98-107) mmol/L Carbon Dioxide 23 (22-30) mmol/L Anion Gap 13 mmol/L BUN 14 (7-17) mg/dL Creatinine 0.71 (0.52-1.04) mg/dL Est GFR (CKD-EPI)AfAm >90 (>60 ml/min/1.73 sqM) Est GFR (CKD-EPI)NonAf >90 (>60 ml/min/1.73 sqM) Glucose 133 H (74-99) mg/dL Plasma Lactic Acid Tanner 2.1 H* (0.7-2.0) mmol/L Calcium 9.8 (8.4-10.2) mg/dL Total Bilirubin 1.1 (0.2-1.3) mg/dL AST 35 (14-36) U/L ALT 22 (4-34) U/L Alkaline Phosphatase 66 (38-126) U/L Total Protein 8.4 H (6.3-8.2) g/dL Albumin 4.5 (3.5-5.0) g/dL Influenza Type A (PCR) (Not Detectd) Influenza Type B (PCR) (Not Detectd) RSV (PCR) (Not Detectd) SARS-CoV-2 (PCR) (Not Detectd) Group A Strep (PCR) (Not Detectd) 05/26/24 05/26/24 Range/Units 18:48 18:48 WBC (3.8-10.6) k/uL RBC (3.80-5.40) m/uL Hgb (11.4-16.0) gm/dL Hct (34.0-46.0) % MCV (80.0-100.0) fL MCH (25.0-35.0) pg MCHC (31.0-37.0) g/dL RDW (11.5-15.5) % Plt Count (150-450) k/uL MPV Neutrophils % % Lymphocytes % % Monocytes % % Eosinophils % % Basophils % % Neutrophils # (1.3-7.7) k/uL Lymphocytes # (1.0-4.8) k/uL Monocytes # (0-1.0) k/uL Eosinophils # (0-0.7) k/uL Basophils # (0-0.2) k/uL Sodium (137-145) mmol/L Potassium (3.5-5.1) mmol/L Chloride (98-107) mmol/L Carbon Dioxide (22-30) mmol/L Anion Gap mmol/L BUN (7-17) mg/dL Creatinine (0.52-1.04) mg/dL Est GFR (CKD-EPI)AfAm (>60 ml/min/1.73 sqM) Est GFR (CKD-EPI)NonAf (>60 ml/min/1.73 sqM) Glucose (74-99) mg/dL Plasma Lactic Acid Tanner (0.7-2.0) mmol/L Calcium (8.4-10.2) mg/dL Total Bilirubin (0.2-1.3) mg/dL AST (14-36) U/L ALT (4-34) U/L Alkaline Phosphatase (38-126) U/L Total Protein (6.3-8.2) g/dL Albumin (3.5-5.0) g/dL Influenza Type A (PCR) Not Detected (Not Detectd) Influenza Type B (PCR) Not Detected (Not Detectd) RSV (PCR) Not Detected (Not Detectd) SARS-CoV-2 (PCR) Not Detected (Not Detectd) Group A Strep (PCR) NOT DETECTED (Not Detectd) Disposition Clinical Impression: Sinusitis, Submandibular swelling Disposition: HOME SELF-CARE Condition: Fair Instructions (If sedation given, give patient instructions): Sinusitis (ED) Additional Instructions: Follow-up with PCP. Report back to ER with any new or worsening symptoms. Take medication as prescribed. Prescriptions: Amoxic-Pot Clav 875-125Mg [Augmentin 875-125] 1 tab PO BID 10 Days #20 tab Is patient prescribed a controlled substance at d/c from ED?: No Referrals: Luigi Gonzales DO [Primary Care Provider] - 1-2 days Time of Disposition: 20:30
[2024-05-26] MEDS: DEXAMETHASONE SOD PHOSPHATE 10 MG/ML 1 ML VIAL IVP STA (19:05)
[2024-05-26 19:10] LABS: Basophils # (A) 0.1 k/uL (0-0.2); Basophils % (A) 1 %; Eosinophils # (A) 0.2 k/uL (0-0.7); Eosinophils % (A) 1 %; HGB 14.8 gm/dL (11.4-16.0); Lymphocytes # (A) 2.9 k/uL (1.0-4.8); Lymphocytes % (A) 23 %; MCH 29.5 pg (25.0-35.0); MCHC 32.9 g/dL (31.0-37.0); MCV 89.8 fL (80.0-100.0); Mean Platelet Volume 8.3; Monocytes # (A) 0.7 k/uL (0-1.0); Monocytes % (A) 6 %; Neutrophils # (A) 8.5 k/uL (1.3-7.7); Neutrophils % (A) 67 %; Platelet Count 318 k/uL (150-450); RBC 5.01 m/uL (3.80-5.40); RDW 13.8 % (11.5-15.5); WBC 12.7 k/uL (3.8-10.6)
[2024-05-26 19:13] LABS: ALT 22 U/L (4-34); AST 35 U/L (14-36); African American GFR (CKD) >90 (>60 ml/min/1.73 sqM); Albumin 4.5 g/dL (3.5-5.0); Alkaline Phosphatase 66 U/L (38-126); Anion Gap 13 mmol/L; Blood Urea Nitrogen 14 mg/dL (7-17); Calcium 9.8 mg/dL (8.4-10.2); Carbon Dioxide 23 mmol/L (22-30); Chloride 102 mmol/L (98-107); Glucose 133 mg/dL (74-99); Non-African American GFR(CKD) >90 (>60 ml/min/1.73 sqM); Sodium 138 mmol/L (137-145); Total Bilirubin 1.1 mg/dL (0.2-1.3); Total Protein 8.4 g/dL (6.3-8.2)
[2024-05-26 19:32] LABS: Influenza A Not Detected (Not Detectd); Influenza B Not Detected (Not Detectd); RSV Not Detected (Not Detectd)
[2024-05-26 19:40] LABS: Potassium 5.5 mmol/L (3.5-5.1)
--- NOTE | 2024-05-26 20:06 | CT ---
EXAMINATION TYPE: CT soft tissue neck w con DATE OF EXAM: 05/26/2024 7:56 PM COMPARISON: None available. CLINICAL INDICATION: Female, 63 years old with history of Submandibular swelling and induration; PHH, Submandibular swelling. TECHNIQUE: Standard enhanced CT of the neck. Axial sections with coronal and sagittal reformats were obtained. Contrast used:100 ml mL of Isovue 300 with IV Contrast, (None if empty) CT DLP: 292.5 mGycm, Automated exposure control for dose reduction was used. FINDINGS: Brain: Visualized portions are grossly unremarkable. Orbits: Unremarkable Sinuses: Extensive mucosal thickening throughout the bilateral maxillary sinuses, ethmoid air cells a nd partially visualized frontal sinuses with air-fluid level suggesting component of acute etiology. Spaces of the neck: Clear and symmetric. Musculoskeletal: No acute osseous pathology. Lymph nodes: Multiple nonenlarged lymph nodes are seen along both anterior chains of the neck. Vascular structures: Patent with atherosclerotic plaque of the internal carotid arteries at the bifur cation. Thoracic Inlet/airway: Airway is patent. The lung apices are clear. Soft tissues/Thyroid: Thyroid and remainder of the soft tissues are unremarkable. Other: none. IMPRESSION 1. No drainable fluid collection/abscess or discrete abnormality identified in the submandibular reg ion of interest. 2. Extensive paranasal sinus disease with air-fluid level suggesting component of acute etiology. [facility], , 05/26/2024 8:04 PM
[2024-05-26] MEDS: SODIUM CHLORIDE 0.9% 500 ML 500 ML IV ONE (20:42)
[2024-05-26] MEDS: AMOXIC-POT CLAV 875MG STARTER PACK 2 TAB BTL PO STA (20:59)
[2024-05-26 21:00] VITALS: BP 136/87; PULSE 85; RESP 16; TEMP 98.5
== END 2024-05-26 21:05 | disposition home or self-care (01) ==
LOC: EC 18:08
DX: J01.90 Acute sinusitis, unspecified (principal); K02.9 Dental caries, unspecified; K03.81 Cracked tooth; F17.210 Nicotine dependence, cigarettes, uncomplicated
CPT/HCPCS: 36415; 87651; 80053; 83605; 84132; 85025; 87636; 70491; 99284; 96374; J1100; Q9967